=== PATIENT | female | born 1980 | race Caucasian/White ===

== ENCOUNTER 2017-07-12 05:45 | Observation (INO) | payer SELFPAY ==
[~2017-07-12] VITALS: Ht 167.6 cm; Wt 97.7 kg
[~2017-07-12 05:45] MED LIST: CIPR500T4 PO; IBUP-232 PO; IBUP-238 PO; PHEN-426 PO; TRAM50TA PO
[2017-07-12 05:46] VITALS: BP 181/121; PULSE 100; RESP 20; TEMP 98.7; O2SAT 100
[2017-07-12] MEDS ORDERED: CLON1 PO (06:00)
[2017-07-12] MEDS ORDERED: ZOLO100T PO (06:00)
[2017-07-12] MEDS ORDERED: CLON.5 PO (06:00)
[2017-07-12] MEDS ORDERED: SODIUM CHLORIDE 0.9% FLUSH 10 ML FLUSH IVF PRN (06:15)
[2017-07-12] MEDS ORDERED: ASPIRIN 81 MG CHEW TAB PO ONE (06:15)
[2017-07-12] MEDS ORDERED: PROCHLORPERAZINE INJ 10 MG/2 ML VIAL IV PUSH ONE (06:15)
[2017-07-12] MEDS ORDERED: LORazepam 2 MG/ML VIAL IV PUSH ONE (06:15)
[2017-07-12 06:20] LABS: AUTOMATED NEUTROPHIL # 9.2 TH/MM3 (1.8-7.7); BASOPHIL # 0.1 TH/MM3 (0-0.2); BASOPHIL % 0.7 % (0.0-2.0); EOSINOPHIL # 0.4 TH/MM3 (0-0.4); EOSINOPHIL % 2.6 % (0.0-4.0); HEMATOCRIT 38.9 % (35.0-46.0); HEMO FLAGS DIFF FINAL; LYMPH % 25.7 % (9.0-44.0); LYMPHOCYTE # 3.6 TH/MM3 (1.0-4.8); MEAN CELL VOLUME 82.3 FL (80.0-100.0); MEAN CORPUSCULAR HEMOGLOBIN 27.7 PG (27.0-34.0); MEAN CORPUSCULAR HGB CONC 33.7 % (32.0-36.0); MONO % 6.1 % (0.0-8.0); NEUT % 64.9 % (16.0-70.0); PLATELET COUNT 281 TH/MM3 (150-450); RED BLOOD COUNT 4.73 MIL/MM3 (4.00-5.30); RED CELL DISTRIBUTION WIDTH 14.1 % (11.6-17.2); WHITE BLOOD COUNT 14.2 TH/MM3 (4.0-11.0)
[2017-07-12 06:34] LABS: APTT (PATIENT) 27.8 SEC (24.3-30.1); INTERNATIONAL NORMALIZED RATIO 0.9 RATIO; PROTHROMBIN TIME - PATIENT 9.9 SEC (9.8-11.6)
--- NOTE | 2017-07-12 06:35 | PD ---
HPI Chief Complaint: Chest Pain Time Seen by Provider: 05:53 Travel History International Travel<30 days: No Contact w/Intl Traveler<30days: No Traveled to known affect area: No History of Present Illness HPI This is a 36-year-old female with a history of cervical dysplasia, anxiety disorder, presents today with complaints of chest pain and back pain. Patient states that she woke up this morning with a bandlike tightening sensation around her back and chest. She reports associated shortness of breath. She reports she has nausea. There is no vomiting or diaphoresis. Patient not had previous pain like this before. The patient smokes 2 packs of cigarettes a day. She denies any long car rides or calf swelling. She denies any history of previous DVTs or clotting disorders. There is no reported control pill use. PFSH Past Medical History Anxiety: Yes Diminished Hearing: No Immunizations Current: Yes Tetanus Vaccination: Unknown Influenza Vaccination: No ?: Not LMP: 6 years ago : 5 Para: 5 Miscarriage: 0 : 0 Tubal Ligation: Yes Past Surgical History Appendectomy: Yes Gynecologic Surgery: Yes (HYST) Hysterectomy: Yes Social History Alcohol Use: No Tobacco Use: Yes (1 PPD) Substance Use: Yes (mj) Allergies-Medications (Allergen,Severity, Reaction): Coded Allergies: red dye (Unverified Allergy, Mild, 04/12/17) latex (Unverified Allergy, Unknown, Itching, 04/12/17) Reported Meds & Prescriptions Reported Meds & Active Scripts Active Ibuprofen 600 Mg Tab 600 Mg PO Q6H PRN Reported Klonopin (Clonazepam) 1 Mg Tab 1 Mg PO HS Klonopin (Clonazepam) 0.5 Mg Tab 0.5 Mg PO DAILY Zoloft (Sertraline HCl) 100 Mg Tab 150 Mg PO DAILY Review of Systems Except as stated in HPI: all other systems reviewed are Neg General / Constitutional: No: Fever, Chills HENT: No: Headaches, Lightheadedness, Neck Pain Cardiovascular: Positive: Chest Pain or Discomfort, No: Palpitations, Irregular Rhythm Respiratory: Positive: Shortness of Breath, No: Cough Gastrointestinal: Positive: Nausea, No: Vomiting, Abdominal Pain Musculoskeletal: Positive: Pain, No: Weakness, Edema Neurologic: No: Weakness, Dizziness, Headache Psychiatric: No: Anxiety, Depression, Disorder of Thought Physical Exam Narrative GENERAL: Well-developed well-nourished female who appears anxious and crying. She is in no acute respiratory distress. SKIN: Focused skin assessment warm/dry. HEAD: Atraumatic. Normocephalic. EYES: Pupils equal and round. No scleral icterus. No injection or drainage. ENT: No nasal bleeding or discharge. Mucous membranes pink and moist. NECK: Trachea midline. Supple. CARDIOVASCULAR: Regular rate and rhythm. No murmur appreciated. RESPIRATORY: No accessory muscle use. Clear to auscultation. Breath sounds equal bilaterally. GASTROINTESTINAL: Abdomen soft, non-tender, nondistended. MUSCULOSKELETAL: No obvious deformities. No clubbing. No cyanosis. No edema. NEUROLOGICAL: Awake and alert. No obvious cranial nerve deficits. Motor grossly within normal limits. Normal speech. PSYCHIATRIC: Anxious and tearful. Data Data Last Documented VS Vital Signs Date Time Temp Pulse Resp B/P (MAP) Pulse Ox O2 Delivery O2 Flow Rate FiO2 07/12/17 06:01 100 Room Air 07/12/17 05:46 98.7 100 20 181/121 (141) Orders Orders Basic Metabolic Panel (Bmp) (07/12/17 06:05) Ckmb (Isoenzyme) Profile (07/12/17 06:05) Complete Blood Count With Diff (07/12/17 06:05) Magnesium (Mg) (07/12/17 06:05) Prothrombin Time / Inr (Pt) (07/12/17 06:05) Act Partial Throm Time (Ptt) (07/12/17 06:05) Troponin I (07/12/17 06:05) Chest, Single Ap (07/12/17 06:05) Ecg Monitoring (07/12/17 06:05) Bilateral Bp Monitoring (07/12/17 06:05) Iv Access Insert/Monitor (07/12/17 06:05) Oximetry (07/12/17 06:05) Oxygen Administration (07/12/17 06:05) Aspirin Chew (Aspirin Chew) (07/12/17 06:15) Sodium Chloride 0.9% Flush (Ns Flush) (07/12/17 06:15) Lorazepam Inj (Ativan Inj) (07/12/17 06:15) Prochlorperazine Inj (Compazine Inj) (07/12/17 06:15) D-Dimer (07/12/17 06:09) Admit Order (Ed Use Only) (07/12/17 07:00) Activity Bed Rest With Brp (07/12/17 07:00) Vital Signs (Adult) Q4H (07/12/17 07:00) Cardiac Rhythm .As Directed (07/12/17 07:00) Notify Dr: Other .PRN (07/12/17 07:00) Notify Dr. Parameters (07/12/17 07:00) Resp Oxygen Nasal Cannula (07/12/17 ) Diet Npo (07/12/17 Breakfast) Ckmb (Isoenzyme) Profile (07/12/17 09:00) Ckmb (Isoenzyme) Profile (07/12/17 12:00) Troponin I (07/12/17 09:00) Troponin I (07/12/17 12:00) Electrocardiogram (07/12/17 09:00) Electrocardiogram (07/12/17 12:00) ^ Obtain (07/12/17 07:00) Sodium Chloride 0.9% Flush (Ns Flush) (07/12/17 07:00) Sodium Chloride 0.9% Flush (Ns Flush) (07/12/17 09:00) [employer] / Telemetry [id number] (07/12/17 07:00) Labs Laboratory Tests Test 07/12/17 06:09 White Blood Count 14.2 TH/MM3 Red Blood Count 4.73 MIL/MM3 Hemoglobin 13.1 GM/DL Hematocrit 38.9 % Mean Corpuscular Volume 82.3 FL Mean Corpuscular Hemoglobin 27.7 PG Mean Corpuscular Hemoglobin Concent 33.7 % Red Cell Distribution Width 14.1 % Platelet Count 281 TH/MM3 Mean Platelet Volume 7.9 FL Neutrophils (%) (Auto) 64.9 % Lymphocytes (%) (Auto) 25.7 % Monocytes (%) (Auto) 6.1 % Eosinophils (%) (Auto) 2.6 % Basophils (%) (Auto) 0.7 % Neutrophils # (Auto) 9.2 TH/MM3 Lymphocytes # (Auto) 3.6 TH/MM3 Monocytes # (Auto) 0.9 TH/MM3 Eosinophils # (Auto) 0.4 TH/MM3 Basophils # (Auto) 0.1 TH/MM3 CBC Comment DIFF FINAL Differential Comment Prothrombin Time 9.9 SEC Prothromb Time International Ratio 0.9 RATIO Activated Partial Thromboplast Time 27.8 SEC D-Dimer Quantitative (PE/DVT) 0.29 MG/L FEU Blood Urea Nitrogen 11 MG/DL Creatinine 0.93 MG/DL Random Glucose 125 MG/DL Calcium Level 9.0 MG/DL Magnesium Level 1.9 MG/DL Sodium Level 137 MEQ/L Potassium Level 3.9 MEQ/L Chloride Level 104 MEQ/L Carbon Dioxide Level 23.2 MEQ/L Anion Gap 10 MEQ/L Estimat Glomerular Filtration Rate 68 ML/MIN Total Creatine Kinase 56 U/L Troponin I LESS THAN 0.02 NG/ML MDM Medical Decision Making Medical Screen Exam Complete: Yes Emergency Medical Condition: Yes Differential Diagnosis ACS versus musculoskeletal pain versus pulmonary embolus Narrative Course 36-year-old female presents with chest pain and shortness of breath and nausea. The patient has no cardiac risk factors other than 2 packs of cigarettes per day. The patient has a history of dysplastic cells in her uterus and cervix. She's had a complete hysterectomy. D-dimer is negative. EKG shows no evidence of acute ST elevations or depressions. Cardiac enzymes are within normal limits. Given her tobacco history, she'll be placed in the chest pain center. Disposition will be per chest pain center after stress test. Diagnosis Primary Impression: Chest pain Additional Impression: Tobacco abuse Admitting Information Admitting Physician Requests: Yogi Wen MD Jul 12, 2017 06:35
[2017-07-12 06:41] LABS: ANION GAP 10 MEQ/L (5-15); BICARBONATE 23.2 MEQ/L (21.0-32.0); BLOOD UREA NITROGEN 11 MG/DL (7-18); CHLORIDE 104 MEQ/L (98-107); GLOMERULAR FILTRATION RATE 68 ML/MIN (>89); MAGNESIUM 1.9 MG/DL (1.5-2.5); POTASSIUM 3.9 MEQ/L (3.5-5.1); SODIUM (NA) 137 MEQ/L (136-145)
--- NOTE | 2017-07-12 06:48 | RADRPT ---
EXAM DATE/TIME: 07/12/2017 06:26 [facility] COMPARISON: CHEST SINGLE AP, July 14, 2016, 18:22. INDICATIONS : Chest pain, shortness of breath. MEDICAL HISTORY : None. SURGICAL HISTORY : Hysterectomy. ENCOUNTER: Initial ACUITY: 1 day PAIN SCORE: 0/10 LOCATION: Bilateral chest FINDINGS: A single view of the chest demonstrates the lungs to be symmetrically aerated without evidence of mas s, infiltrate or effusion. The cardiomediastinal contours are unremarkable. Osseous structures are intact. CONCLUSION: Normal examination. Irving Neal MD on July 12, 2017 at 6:47 Board Certified Radiologist. This report was verified electronically.
[2017-07-12 06:55] LABS: CREATINE KINASE 56 U/L (26-192)
[2017-07-12 07:00] VITALS: BP_SYST 124; BP_SYST 131; BP_DIAS 77; BP_DIAS 81; PULSE 94; PULSE 96; RESP 16; TEMP 97.8; O2SAT 98
[2017-07-12] MEDS ORDERED: SODIUM CHLORIDE 0.9% FLUSH 10 ML FLUSH IV FLUSH PRN (07:00)
--- NOTE | 2017-07-12 08:48 | HHI.HP ---
[facility] Primary Care Physician Ruslan Alvarez M.D. Chief Complaint Chest pain History of Present Illness This is a 36-year-old female that presents to ED via private vehicle with a complaint of a chest discomfort. Patient states she initially woke up about 2 in the morning with the back discomfort. Denies hot shower trying to make it go away but it still kind of persisted. She went back to bed. Reawoke at 3:30 morning with a chest pressure and center chest. She states it felt deep. It lasted 1-1/2 hours. She was short of breath with it, nauseous, and mildly diaphoretic. She found that she took in a deep breath it would worsen. She's never had a discomfort like this before. Worse level is a 9 out of 10. Cannot recall prior stress testing. Denies recent illness. Denies any recent travel. Denies oral contraceptive use. Review of Systems General: Patient denies fevers, chills recent, and recent travel HEENT: Patient denies headache, sore throat, difficulty swallowing. Cardiovascular: Has the chest discomfort as mentioned above. Denies sensation of heart beating rapidly or irregularly. No syncope. Mildly diaphoretic. Respiratory: She was short of breath. Inspiration seems to worsen the discomfort. Denies coughing wheezing or hemoptysis. GI: She was nauseated. Patient denies vomiting, diarrhea, abdominal pain, bloody stools. Musculoskeletal: Patient denies joint pain or edema. Denies calf pain or edema. Neurovascular: Patient denies numbness, tingling, weakness in extremities. Denies headache. Endocrine: Denies polyuria and polydipsia. Hematologic: Denies easy bruising. Skin: Denies rash or itching. Past Family Social History Allergies: Coded Allergies: red dye (Unverified Allergy, Mild, 04/12/17) latex (Unverified Allergy, Unknown, Itching, 04/12/17) Past Medical History Anxiety. Depression. Denies hyperlipidemia, diabetes, CAD, and hypertension. Past Surgical History Hysterectomy and appendectomy. Reported Medications Reported Meds & Active Scripts Active Ibuprofen 600 Mg Tab 600 Mg PO Q6H PRN Reported Klonopin (Clonazepam) 1 Mg Tab 1 Mg PO HS Klonopin (Clonazepam) 0.5 Mg Tab 0.5 Mg PO DAILY Zoloft (Sertraline HCl) 100 Mg Tab 150 Mg PO DAILY Active Ordered Medications Current Medications Medications (Trade) Dose Ordered Sig/Renata Route Start Time Stop Time Status Last Admin (NS Flush) 2 ml UNSCH PRN IVF 07/12/17 06:15 (NS Flush) 2 ml UNSCH PRN IV FLUSH 07/12/17 07:00 (NS Flush) 2 ml BID IV FLUSH 07/12/17 09:00 Family History Her mother is some type of heart disease but really not sure what it is. She is followed by short order fry cook. Social History Patient smokes on average 2 packs of cigarettes a day for 27 years. Has occasional marijuana. Denies alcohol. Physical Exam Vital Signs Vital Signs Date Time Temp Pulse Resp B/P (MAP) Pulse Ox O2 Delivery O2 Flow Rate FiO2 07/12/17 07:00 96 16 98 Room Air 07/12/17 07:00 98 Room Air 07/12/17 07:00 97.8 96 16 131/77 (95) 98 Room Air 07/12/17 07:00 97.8 94 16 131/77 (95) 98 Room Air 124/81 (95) 07/12/17 07:00 16 98 Room Air 07/12/17 06:01 100 Room Air 07/12/17 05:46 98.7 100 20 181/121 (141) 100 Room Air Physical Exam GENERAL: This is a well-nourished, well-developed patient, in no apparent distress. Patient speaks in clear complete sentences. Patient is pleasant. HEENT: Head is atraumatic and normocephalic. Neck is supple without lymphadenopathy and trachea is midline. No JVD or carotid bruits. CARDIOVASCULAR: Regular rate and rhythm without murmurs, gallops, or rubs. RESPIRATORY: Clear to auscultation. Breath sounds equal bilaterally. No wheezes , rales, or rhonchi. Chest wall is tender however it is not the same discomfort she had this morning. No use of accessory muscles. GASTROINTESTINAL: Abdomen is nontender, nondistended. Abdomen soft. No obvious pulsatile mass or bruit. No CVA tenderness. Strong femoral pulses bilaterally. Normal bowel sounds in all quadrants. MUSCULOSKELETAL: Patient is moving upper and lower extremities freely. No calf tenderness or edema, no Homans sign. Strong pulses in upper and lower extremities. NEUROLOGICAL: Patient is alert and oriented. Cranial nerves 2-12 are grossly intact. No focal deficits and speech is clear. SKIN: No rash and turgor is normal. Laboratory Laboratory Tests Test 07/12/17 06:09 White Blood Count 14.2 Red Blood Count 4.73 Hemoglobin 13.1 Hematocrit 38.9 Mean Corpuscular Volume 82.3 Mean Corpuscular Hemoglobin 27.7 Mean Corpuscular Hemoglobin Concent 33.7 Red Cell Distribution Width 14.1 Platelet Count 281 Mean Platelet Volume 7.9 Neutrophils (%) (Auto) 64.9 Lymphocytes (%) (Auto) 25.7 Monocytes (%) (Auto) 6.1 Eosinophils (%) (Auto) 2.6 Basophils (%) (Auto) 0.7 Neutrophils # (Auto) 9.2 Lymphocytes # (Auto) 3.6 Monocytes # (Auto) 0.9 Eosinophils # (Auto) 0.4 Basophils # (Auto) 0.1 CBC Comment DIFF FINAL Differential Comment Prothrombin Time 9.9 Prothromb Time International Ratio 0.9 Activated Partial Thromboplast Time 27.8 D-Dimer Quantitative (PE/DVT) 0.29 Blood Urea Nitrogen 11 Creatinine 0.93 Random Glucose 125 Calcium Level 9.0 Magnesium Level 1.9 Sodium Level 137 Potassium Level 3.9 Chloride Level 104 Carbon Dioxide Level 23.2 Anion Gap 10 Estimat Glomerular Filtration Rate 68 Total Creatine Kinase 56 Troponin I LESS THAN 0.02 Result Diagram: 07/12/17 0609 07/12/17 06 Imaging Last 48 hours Impressions Chest X-Ray 07/12/17 0605 Signed Impressions: Service Date/Time: Wednesday, July 12, 2017 06:26 - CONCLUSION: Normal examination. Irving Neal MD Course Initial EKG sinus rhythm without significant ST segment depressions or elevations. Caprini VTE Risk Assessment Caprini VTE Risk Assessment: No/Low Risk (score <= 1) Caprini Risk Assessment Model Point Value = 1 Point Value = 2 Point Value = 3 Point Value = 5 Age 41-60 Minor surgery BMI > 25 kg/m2 Swollen legs Varicose veins or History of unexplained or recurrent spontaneous Oral contraceptives or hormone replacement Sepsis (< 1 month) Serious lung disease, including pneumonia (< 1 month) Abnormal pulmonary function Acute myocardial infarction Congestive heart failure (< 1 month) History of inflammatory bowel disease Medical patient at bed rest Age 61-74 Arthroscopic surgery Major open surgery (> 45 min) Laparoscopic surgery (> 45 min) Malignancy Confined to bed (> 72 hours) Immobilizing plaster cast Central venous access Age >= 75 History of VTE Family history of VTE Factor V Leiden Prothrombin [id number] Lupus anticoagulant Anticardiolipin antibodies Elevated serum homocysteine Heparin-induced thrombocytopenia Other congenital or acquired thrombophilia Stroke (< 1 month) Elective arthroplasty Hip, pelvis, or leg fracture Acute spinal cord injury (< 1 month) Prophylaxis Regimen Total Risk Factor Score Risk Level Prophylaxis Regimen 0-1 Low Early ambulation 2 Moderate Order ONE of the following: *Sequential Compression Device (SCD) *Heparin 5000 units SQ BID 3-4 Higher Order ONE of the following medications: *Heparin 5000 units SQ TID *Enoxaparin/Lovenox 40 mg SQ daily (WT < 150 kg, CrCl > 30 mL/min) *Enoxaparin/Lovenox 30 mg SQ daily (WT < 150 kg, CrCl > 10-29 mL/min) *Enoxaparin/Lovenox 30 mg SQ BID (WT < 150 kg, CrCl > 30 mL/min) AND/OR *Sequential Compression Device (SCD) 5 or more Highest Order ONE of the following medications: *Heparin 5000 units SQ TID (Preferred with Epidurals) *Enoxaparin/Lovenox 40 mg SQ daily (WT < 150 kg, CrCl > 30 mL/min) *Enoxaparin/Lovenox 30 mg SQ daily (WT < 150 kg, CrCl > 10-29 mL/min) *Enoxaparin/Lovenox 30 mg SQ BID (WT < 150 kg, CrCl > 30 mL/min) AND *Sequential Compression Device (SCD) Assessment and Plan Assessment and Plan * Chest pain: Patient will continue to have serial cardiac enzymes and EKGs for ruling out purposes. She has been seen by Dr. Schmid cardiology in the chest and lucas. Patient will undergo a Jeffery protocol ETT if she does rule out. She'll be discharged home if her stress test is nonischemic with instructions to follow-up with PCP. Return to ED for interval issues. * Depression/anxiety: Continue medications. * Tobacco abuse: Patient has been counseled on importance of smoking cessation. Patient is stable at this time. She is agreeable to this plan. Baljeet Traylor Jul 12, 2017 08:48
[2017-07-12 09:00] VITALS: BP 118/83; PULSE 70; RESP 16; TEMP 97.8; O2SAT 99
[2017-07-12] MEDS ORDERED: SERTRALINE HCL 100 MG TAB PO SCH (09:00)
[2017-07-12] MEDS ORDERED: clonazePAM 0.5 MG TAB PO SCH (09:00)
[2017-07-12] MEDS ORDERED: SODIUM CHLORIDE 0.9% FLUSH 10 ML FLUSH IV FLUSH SCH (09:00)
[2017-07-12 10:23] LABS: CREATINE KINASE 52 U/L (26-192)
[2017-07-12 11:00] VITALS: BP 123/85; PULSE 80; RESP 16; TEMP 97.8; O2SAT 99
[2017-07-12 12:26] LABS: CREATINE KINASE 49 U/L (26-192)
[2017-07-12 13:20] VITALS: BP 122/83; TEMP 97
[2017-07-12] MEDS ORDERED: RESP: ALBUTEROL 2.5 MG/IPRATROPIUM 0.5 MG NEB (PRN) INH (13:30)
[2017-07-12] MEDS ORDERED: RESP: ALBUTEROL 2.5 MG/IPRATROPIUM 0.5 MG NEB (SCH) INH ONE (13:30)
--- NOTE | 2017-07-12 14:42 | HHI.DCPOC ---
Discharge Care Plan Diagnosis: (1) Chest pain (2) Tobacco abuse Goals to Promote Your Health * To prevent worsening of your condition and complications * To maintain your health at the optimal level Directions to Meet Your Goals Take your medications as prescribed Follow your dietary instruction Follow activity as directed Keep your appointments as scheduled Take your immunizations and boosters as scheduled If your symptoms worsen call your PCP, if no PCP go to Urgent Care Center or Emergency Room Smoking is Dangerous to Your Health. Avoid second hand smoke Call the 24-hour hour crisis hotline for domestic abuse at Baljeet Traylor Jul 12, 2017 14:42
--- NOTE | 2017-07-12 17:19 | TR ---
Date Performed: 07/12/2017 Time Performed: 14:19:39 DOCTOR: Michelle Schmid DRUG LIST: CLINICAL HISTORY: REASON FOR TEST: REASON FOR ENDING: OBSERVATION: CONCLUSION: CONSTANT CHEST DISCOMFORT DID NOT WORSEN. TEST STOPPED AFTER EXCEEDING GOAL HR SECON STORMY TO SOB AND LEG FATIGUE.Maximum YS=640 % Max HR Achieved=86.0% Maximum BE=301/82 Total Exercise T zahra=4:01 COMMENTS:
--- NOTE | 2017-07-12 17:19 | EKG ---
Date Performed: 07/12/2017 Time Performed: 11:15:43 PTAGE: 36 years EKG: Sinus rhythm WITH SINUS ARRHYTHMIA NONSPECIFIC T-WAVE ABNORMALITY BORDERLINE ECG Since PREVIOUS TRACING , no significant change noted PREVIOUS TRACIN07/12/2017 09.12 DOCTOR: Michelle Schmid Interpretating Date/Time 07/12/2017 17:17:29
--- NOTE | 2017-07-12 17:20 | EKG ---
Date Performed: 07/12/2017 Time Performed: 09:12:04 PTAGE: 36 years EKG: Sinus rhythm NORMAL ECG Since PREVIOUS TRACING , no significant change noted PREVIOUS TRACIN07/12/2017 05.59 DOCTOR: Michelle Schmid Interpretating Date/Time 07/12/2017 17:18:53
--- NOTE | 2017-07-12 17:21 | EKG ---
Date Performed: 07/12/2017 Time Performed: 05:59:00 PTAGE: 36 years EKG: Sinus rhythm WITH SINUS ARRHYTHMIA NORMAL ECG Since PREVIOUS TRACING , no significant change noted DOCTOR: Michelle Schmid Interpretating Date/Time 07/12/2017 17:19:09
[2017-07-12] MEDS ORDERED: clonazePAM 1 MG TAB PO SCH (21:00)
== END 2017-07-12 15:41 | disposition home or self-care (01) ==
LOC: NEPE 05:45 → NEDA 07:03 → NEPGCP 13:28
DX: R07.9 Chest pain, unspecified (principal); F17.210 Nicotine dependence, cigarettes, uncomplicated; R06.02 Shortness of breath; F41.9 Anxiety disorder, unspecified; R11.0 Nausea; R61 Generalized hyperhidrosis; F32.9 Major depressive disorder, single episode, unspecified; F12.90 Cannabis use, unspecified, uncomplicated
CPT/HCPCS: 71010; 80048; 82550; 83735; 84484; 85025; 85379; 85610; 85730; 93005; 93017; 94664; 96374; 96375; 99285; G0378; J0780; J2060

== ENCOUNTER 2017-07-27 11:19 | Emergency (ER) | payer SELFPAY ==
[~2017-07-27] VITALS: Ht 167.6 cm; Wt 114.0 kg
[~2017-07-27 11:19] MED LIST changes: -CIPR500T4 PO; +CLON.5 PO; +CLON1 PO; -IBUP-232 PO; -IBUP-238 PO; -PHEN-426 PO; -TRAM50TA PO; +ZOLO100T PO
[2017-07-27 11:21] VITALS: BP 143/56; PULSE 97; RESP 16; TEMP 98.1; O2SAT 97
[2017-07-27] MEDS ORDERED: TRAZ100T10 PO (11:44)
[2017-07-27] MEDS ORDERED: ADDE20 PO (11:44)
[2017-07-27] MEDS ORDERED: IBUP1TAB7 PO (11:44)
[2017-07-27] MEDS ORDERED: BACL10TA PO (11:44)
--- NOTE | 2017-07-27 12:35 | RADRPT ---
EXAM DATE/TIME: 07/27/2017 12:14 [facility] COMPARISON: No previous studies available for comparison. INDICATIONS : Right 2nd digit pain, no known injury. MEDICAL HISTORY : None. SURGICAL HISTORY : None. ENCOUNTER: Initial ACUITY: 2 days PAIN SCORE: 4/10 LOCATION: Right distal 2nd digit FINDINGS: There is mild generalized soft tissue swelling of the second digit. Bony structures are intact. There is no evidence of fracture, significant arthropathy or radiopaque f oreign body. CONCLUSION: Soft tissue swelling of the second digit without evidence of acute bony abnormality, destructive bone changes or radiopaque foreign body. Pritesh Carr MD on July 27, 2017 at 12:32 Board Certified Radiologist. This report was verified electronically.
--- NOTE | 2017-07-27 12:56 | PD ---
HPI Chief Complaint: Musculoskeletal Complaint Time Seen by Provider: 11:44 Travel History International Travel<30 days: No Contact w/Intl Traveler<30days: No Traveled to known affect area: No History of Present Illness HPI 36-year-old female with right second digit pain and swelling. Patient reports she started taking trazodone at night recently and is unsure how she injured the finger. She has no other injuries. She has tenderness and swelling to the DIP joint of the right second digit. She reports normal sensation of foreign range of motion. PFSH Past Medical History Anxiety: Yes Heart Rhythm Problems: No Cardiac Catheterization: No Cardiovascular Problems: No High Cholesterol: No Congestive Heart Failure: No Diabetes: No Diminished Hearing: No Immunizations Current: Yes Influenza Vaccination: No ?: Not : 5 Para: 5 Miscarriage: 0 : 0 Tubal Ligation: Yes Past Surgical History Appendectomy: Yes Coronary Artery Bypass Graft: No Gynecologic Surgery: Yes (HYST) Hysterectomy: Yes Family History Family Myocardial Infarction: Yes (DAD AND MATERNAL GRANDFATHER) Social History Alcohol Use: No Tobacco Use: Yes (1 PPD) Substance Use: Yes (mj) Allergies-Medications (Allergen,Severity, Reaction): Coded Allergies: red dye (Unverified Allergy, Mild, 07/27/17) latex (Unverified Allergy, Unknown, Itching, 07/27/17) Reported Meds & Prescriptions Reported Meds & Active Scripts Active Reported Adderall (Amphetamine-Dextroamphetamine) 20 Mg Tab 20 Mg PO BID Avoid late evening doses. Space doses at least 4 to 6 hours if more than once/day dosing. Ibuprofen 800 Mg Tab 800 Mg PO TID Baclofen 10 Mg Tab 10 Mg PO TID Trazodone (Trazodone HCl) 100 Mg Tablet 100 Mg PO HS Klonopin (Clonazepam) 1 Mg Tab 1 Mg PO HS Klonopin (Clonazepam) 0.5 Mg Tab 0.5 Mg PO DAILY Zoloft (Sertraline HCl) 100 Mg Tab 150 Mg PO DAILY Review of Systems Except as stated in HPI: all other systems reviewed are Neg Physical Exam Narrative GENERAL: Well-nourished, well-developed patient. SKIN: Focused skin assessment warm/dry. HEAD: Normocephalic. EYES: No scleral icterus. No injection or drainage. NECK: Supple, trachea midline. No JVD or lymphadenopathy. MUSCULOSKELETAL: No cyanosis, or edema. Right hand: Tenderness and mild swelling to the right second digit. Point tenderness over the DIP joint. No deformity. Normal sensation. Brisk cap refill. Data Data Last Documented VS Vital Signs Date Time Temp Pulse Resp B/P (MAP) Pulse Ox O2 Delivery O2 Flow Rate FiO2 07/27/17 11:21 98.1 97 16 143/56 (85) 97 Orders Orders Finger ([id number]) (07/27/17 ) Splint Or Brace Apply/Monitor (07/27/17 12:54) Ed Discharge Order (07/27/17 12:56) MDM Medical Decision Making Medical Screen Exam Complete: Yes Emergency Medical Condition: Yes Differential Diagnosis Finger fracture versus sprain versus strain versus contusion Narrative Course 36-year-old female with right second digit pain and swelling. Patient reports she started taking trazodone at night recently and is unsure how she injured the finger. She has no other injuries. She has tenderness and swelling to the DIP joint of the right second digit. Extremities neurovascular intact. Normal sensation. X-rays negative for fracture. The finger will be splinted she was instructed to take NSAIDs and follow up with her doctor. Diagnosis Primary Impression: Finger pain Qualified Codes: M79.644 - Pain in right finger(s) Referrals: Primary Care Physician Disposition: 01 DISCHARGE HOME Condition: Stable Ade Valle Jul 27, 2017 12:56
== END 2017-07-27 13:27 | disposition home or self-care (01) ==
LOC: PHEFT 11:19
DX: M79.644 Pain in right finger(s) (principal)
CPT/HCPCS: 73140; 99283

== ENCOUNTER 2017-09-06 23:04 | Observation (INO) | payer BC, OTHER ==
[~2017-09-06] VITALS: Ht 167.6 cm; Wt 113.5 kg
[~2017-09-06 23:04] MED LIST changes: +ADDE20 PO; +BACL10TA PO; +IBUP1TAB7 PO; +TRAZ100T10 PO
[2017-09-06 23:09] VITALS: BP 154/87; PULSE 107; RESP 18; TEMP 98.9; O2SAT 97
[2017-09-06] MEDS ORDERED: FAMOTIDINE 20 MG/2 ML VIAL IV PUSH ONE (23:30)
[2017-09-06] MEDS ORDERED: diphenhydrAMINE HCL 50 MG/ML VIAL IVP ONE (23:30)
[2017-09-06] MEDS ORDERED: methylPREDNISolone SOD SUCC 125 MG/2 ML VIAL IV PUSH ONE (23:30)
[2017-09-06] MEDS ORDERED: EPINEPHrine HCL (1:1000) 1 MG/ML VIAL IM ONE (23:30)
--- NOTE | 2017-09-06 23:31 | PD ---
HPI Chief Complaint: Allergic/Adverse Reaction Time Seen by Provider: 23:23 Travel History International Travel<30 days: No Contact w/Intl Traveler<30days: No Traveled to known affect area: No History of Present Illness HPI 36yo F with PMH of anxiety presents to the ED with c/o lip swelling, itching and redness in bilateral arms and ankles. Said she started having right lower lip swelling maybe 3 hours ago but then left side became swollen as well and she started itching about an hour ago. Said she feels she is having some difficulty swallowing. Had similar lip swelling with red dye before but didnt have it and it was not this severe. Pt has some nausea, but has been nauseous all day. Mild sob. Denies any chest pain, vomiting, abdominal pain, focal weakness or numbness. Pt is being work up by quahogger now for hematuria and urinary incontinence and started on oxybutynin yesterday. Last took it today. Denies any family history of angioedema or ANDRES inhibitors. PFSH Past Medical History Anxiety: Yes Heart Rhythm Problems: No Cardiac Catheterization: No Cardiovascular Problems: No High Cholesterol: No Congestive Heart Failure: No Diabetes: No Diminished Hearing: No Immunizations Current: Yes : 5 Para: 5 Miscarriage: 0 : 0 Tubal Ligation: Yes Past Surgical History Appendectomy: Yes Coronary Artery Bypass Graft: No Gynecologic Surgery: Yes (HYST) Hysterectomy: Yes Social History Alcohol Use: No Tobacco Use: Yes (1 PPD) Substance Use: Yes (mj) Allergies-Medications (Allergen,Severity, Reaction): Coded Allergies: red dye (Unverified Allergy, Mild, 07/27/17) latex (Unverified Allergy, Unknown, Itching, 07/27/17) Reported Meds & Prescriptions Reported Meds & Active Scripts Active Prednisone 10 Mg Tab 10 Mg PO DAILY Take 20mg twice daily x 1 day, decrease down to 20mg once daily x 2 days, then decrease to 10 mg once daily x 2 days, then stop. Epipen 2-Darvin Inj (Epinephrine) 0.3 Mg/0.3 Ml Pfpen 0.3 Mg IM ONCE PRN Reported Soma (Carisoprodol) 350 Mg Tab 350 Mg PO HS PRN Adderall (Amphetamine-Dextroamphetamine) 20 Mg Tab 20 Mg PO BID Avoid late evening doses. Space doses at least 4 to 6 hours if more than once/day dosing. Ibuprofen 800 Mg Tab 800 Mg PO TID Trazodone (Trazodone HCl) 100 Mg Tablet 100 Mg PO HS Klonopin (Clonazepam) 1 Mg Tab 1 Mg PO HS Klonopin (Clonazepam) 0.5 Mg Tab 0.5 Mg PO DAILY Zoloft (Sertraline HCl) 100 Mg Tab 150 Mg PO DAILY Review of Systems Except as stated in HPI: all other systems reviewed are Neg Physical Exam Narrative GENERAL: 36yo F in moderate distress. SKIN: Focused skin assessment warm/dry. HEAD: Atraumatic. Normocephalic. EYES: Pupils equal and round. No scleral icterus. No injection or drainage. ENT: +Marked lower lip swelling. Uvula midline. Patent airway. NECK: Trachea midline. No JVD. CARDIOVASCULAR: Regular rate and rhythm. No murmur appreciated. RESPIRATORY: No accessory muscle use. Clear to auscultation. Breath sounds equal bilaterally. GASTROINTESTINAL: Abdomen soft, non-tender, nondistended. Hepatic and splenic margins not palpable. MUSCULOSKELETAL: No obvious deformities. No clubbing. No cyanosis. No edema. NEUROLOGICAL: Awake and alert. No obvious cranial nerve deficits. Motor grossly within normal limits. Normal speech. PSYCHIATRIC: Appropriate mood and affect; insight and judgment normal. Data Data Last Documented VS Vital Signs Date Time Temp Pulse Resp B/P (MAP) Pulse Ox O2 Delivery O2 Flow Rate FiO2 09/06/17 23:38 80 130/66 09/06/17 23:09 98.9 18 97 Orders Orders Diphenhydramine Inj (Benadryl Inj) (09/06/17 23:30) Methylprednisolone So Succ Inj (Solumedr (09/06/17 23:30) Famotidine Inj (Pepcid Inj) (09/06/17 23:30) Epinephrine (1:1000) Inj (Adrenalin (1:1 (09/06/17 23:30) Complete Blood Count With Diff (09/06/17 23:24) Basic Metabolic Panel (Bmp) (09/06/17 23:24) Admit Order (Ed Use Only) (09/07/17 00:38) Place In Observation (09/07/17 ) Vital Signs (Adult) JAVON.Q4H (09/07/17 00:39) Activity Oob Ad Izzy (09/07/17 00:39) Labs Laboratory Tests Test 09/06/17 23:50 White Blood Count 9.6 TH/MM3 Red Blood Count 4.23 MIL/MM3 Hemoglobin 12.3 GM/DL Hematocrit 34.9 % Mean Corpuscular Volume 82.5 FL Mean Corpuscular Hemoglobin 29.1 PG Mean Corpuscular Hemoglobin Concent 35.3 % Red Cell Distribution Width 14.7 % Platelet Count 258 TH/MM3 Mean Platelet Volume 7.9 FL Neutrophils (%) (Auto) 53.0 % Lymphocytes (%) (Auto) 32.8 % Monocytes (%) (Auto) 8.1 % Eosinophils (%) (Auto) 5.4 % Basophils (%) (Auto) 0.7 % Neutrophils # (Auto) 5.1 TH/MM3 Lymphocytes # (Auto) 3.1 TH/MM3 Monocytes # (Auto) 0.8 TH/MM3 Eosinophils # (Auto) 0.5 TH/MM3 Basophils # (Auto) 0.1 TH/MM3 CBC Comment DIFF FINAL Differential Comment Blood Urea Nitrogen 10 MG/DL Creatinine 1.04 MG/DL Random Glucose 123 MG/DL Calcium Level 8.9 MG/DL Sodium Level 137 MEQ/L Potassium Level 3.4 MEQ/L Chloride Level 103 MEQ/L Carbon Dioxide Level 25.5 MEQ/L Anion Gap 9 MEQ/L Estimat Glomerular Filtration Rate 60 ML/MIN [facility] Medical Decision Making Medical Screen Exam Complete: Yes Emergency Medical Condition: Yes Differential Diagnosis Anaphylaxis vs. angioedema Narrative Course 36yo F with lower lip swelling, redness/itching and nausea. Impression is more anaphylaxis. Pt given epinephrine, methylprednisolone, diphenhydramine, famotidine. Labs reviewed, no leukocytosis. BMP unremarkable. Pt reevaluated at bedside and feels better. States she is no long sob and itching improved. Lower lip is still very swollen. She feels it has gotten a little better. Pt has been saturating at 97% on RA with clear lungs. Patent airway. Discussed with Dr. Eugene and accepted to Dr. Diego's service for observation. Diagnosis Primary Impression: Anaphylaxis Qualified Codes: T78.2XXA - Anaphylactic shock, unspecified, initial encounter Admitting Information Admitting Physician Requests: Observation Scripts Prednisone (Prednisone) 10 Mg Tab 10 MG PO DAILY for Allergic Reaction, #10 TAB 0 Refills Take 20mg twice daily x 1 day, decrease down to 20mg once daily x 2 days, then decrease to 10 mg once daily x 2 days, then stop. Prov: Kandi Rascon 09/07/17 Epinephrine Inj (Epipen 2-Darvin Inj) 0.3 Mg/0.3 Ml Pfpen 0.3 MG IM ONCE Y for ALLERGIC REACTION, #1 PACK 0 Refills Prov: Kandi Rascon 09/07/17 Yocasta Fishman DO Sep 06, 2017 23:31
[2017-09-06] MEDS ORDERED: SOMA350T PO (23:45)
[2017-09-06] MEDS ORDERED: OXYB5TAB8 PO (23:45)
[2017-09-07 00:01] LABS: AUTOMATED NEUTROPHIL # 5.1 TH/MM3 (1.8-7.7); BASOPHIL # 0.1 TH/MM3 (0-0.2); BASOPHIL % 0.7 % (0.0-2.0); EOSINOPHIL # 0.5 TH/MM3 (0-0.4); EOSINOPHIL % 5.4 % (0.0-4.0); HEMATOCRIT 34.9 % (35.0-46.0); HEMOGLOBIN 12.3 GM/DL (11.6-15.3); LYMPH % 32.8 % (9.0-44.0); LYMPHOCYTE # 3.1 TH/MM3 (1.0-4.8); MEAN CELL VOLUME 82.5 FL (80.0-100.0); MEAN CORPUSCULAR HEMOGLOBIN 29.1 PG (27.0-34.0); MEAN CORPUSCULAR HGB CONC 35.3 % (32.0-36.0); MEAN PLATELET VOLUME 7.9 FL (7.0-11.0); MONO % 8.1 % (0.0-8.0); MONOCYTE # 0.8 TH/MM3 (0-0.9); PLATELET COUNT 258 TH/MM3 (150-450); RED BLOOD COUNT 4.23 MIL/MM3 (4.00-5.30); RED CELL DISTRIBUTION WIDTH 14.7 % (11.6-17.2); WHITE BLOOD COUNT 9.6 TH/MM3 (4.0-11.0)
[2017-09-07 00:16] LABS: BICARBONATE 25.5 MEQ/L (21.0-32.0); CALCIUM 8.9 MG/DL (8.5-10.1); CREATININE 1.04 MG/DL (0.50-1.00)
[2017-09-07 01:00] VITALS: BP 124/80; PULSE 89; RESP 16; O2SAT 93
[2017-09-07 03:00] VITALS: BP 125/78; PULSE 90; RESP 16; O2SAT 97
[2017-09-07 06:00] VITALS: BP 133/80; PULSE 95; RESP 18; O2SAT 95
[2017-09-07] MEDS ORDERED: EPIP0.3I IM (08:18)
[2017-09-07] MEDS ORDERED: PRED10 PO ×2 (08:22→08:23)
--- NOTE | 2017-09-07 08:26 | HHI.HP ---
HPI Service [facility] Hospitalists Primary Care Physician Ruslan Alvarez M.D. Admission Diagnosis Anaphylaxis Chief Complaint: Lip swelling, SOB Travel History International Travel<30 Days: No Contact w/Intl Traveler <30 Da: No Traveled to Known Affected Are: No History of Present Illness Ms. Mancilla is a pleasant 36 y/o WF with anxiety and ADD who [place] [facility] [place] with complaints of lip swelling, itching and redness in bilateral arms, difficulty swallowing and SOB. Pt started taking two new medications yesterday, Oxybutynin and an OTC cold medication, Chlor tabs ( Chlorpheniramine). Said she started having right lower lip swelling about 3 hours prior to reporting to the ED. She then started itching about an hour prior to arrival. Pt began having some difficulty swallowing and felt mildly SOB and this prompted her evaluation in the ED. She reports that she had similar lip swelling and mild itching when she had previously had products with red dye in it before but it was not as severe of a reaction as this was. Pt has some nausea but no vomiting. Denies any chest pain, new abdominal pain, focal weakness or numbness. Pt is being worked up as an outpt for hematuria and urinary incontinence which is why she was started on oxybutynin yesterday. In the ED the pt was given Solu-Medrol, Epinephrine, Famotidine and IV Benadryl and feels that she has returned almost completely to her baseline. She still has some mild lower lip swelling but otherwise is doing much better and wants to go home. Denies any family history of angioedema or use of ANDRES inhibitors. Review of Systems Constitutional: DENIES: Fever, Chills Eyes: DENIES: Vision loss Ears, nose, mouth, throat: COMPLAINS OF: Nasal discharge, Running Nose, DENIES : Vertigo Respiratory: COMPLAINS OF: Shortness of breath, DENIES: Cough Cardiovascular: DENIES: Chest pain, Lower Extremity Edema Gastrointestinal: COMPLAINS OF: Nausea, DENIES: Constipation, Diarrhea, GERD, Vomiting Genitourinary: COMPLAINS OF: Urinary incontinence, Hematuria Musculoskeletal: DENIES: Back pain, Neck pain Integumentary: DENIES: Rash Neurologic: DENIES: Headache Psychiatric: DENIES: Confusion Past Family Social History Past Medical History ADD Anxiety Hx of cervical dysplasia Ovarian cysts Hematuria and urinary incontinence Past Surgical History Tubal ligation Appendectomy Partial hysterectomy with left oophorectomy Exploratory laparoscopy Reported Medications Ditropan (Oxybutynin Chloride) 5 Mg Tab 5 Mg PO Q12HR Soma (Carisoprodol) 350 Mg Tab 350 Mg PO HS PRN Adderall (Amphetamine-Dextroamphetamine) 20 Mg Tab 20 Mg PO BID Avoid late evening doses. Space doses at least 4 to 6 hours if more than once/day dosing. Ibuprofen 800 Mg Tab 800 Mg PO TID Trazodone (Trazodone HCl) 100 Mg Tablet 100 Mg PO HS Klonopin (Clonazepam) 1 Mg Tab 1 Mg PO HS Klonopin (Clonazepam) 0.5 Mg Tab 0.5 Mg PO DAILY Zoloft (Sertraline HCl) 100 Mg Tab 150 Mg PO DAILY Allergies: Coded Allergies: red dye (Unverified Allergy, Mild, 07/27/17) latex (Unverified Allergy, Unknown, Itching, 07/27/17) Family History Noncontributory Social History (+)Tobacco use, smoked as much as 2-3 packs per day but recently has cut back to 1/2 ppd Denies any alcohol use Denies any illicit drug use Pt has two children, 20 y/o daughter and 16 y/o son Physical Exam Vital Signs Vital Signs Date Time Temp Pulse Resp B/P (MAP) Pulse Ox O2 Delivery O2 Flow Rate FiO2 09/07/17 06:00 95 18 133/80 (97) 95 Room Air 09/07/17 03:00 90 16 125/78 (94) 97 Room Air 09/07/17 01:00 89 16 124/80 (95) 93 Room Air 09/06/17 23:38 80 130/66 09/06/17 23:09 98.9 107 18 154/87 (109) 97 Physical Exam GENERAL: This is a well-nourished, well-developed patient, in no apparent distress. SKIN: No rashes, ecchymoses or lesions. Cool and dry. HEENT: Atraumatic. Normocephalic. No temporal or scalp tenderness. No scleral icterus. Uvula midline. Bottom lip still mildly swollen. Airway patent. NECK: Trachea midline, supple, nontender. CARDIO: Regular. RESP: CTA bilaterally. No wheezes, rales, or rhonchi. ABD: +BS, soft, non-tender, nondistended. EXT: Extremities without clubbing, cyanosis, or edema. NEURO: Awake and alert. Motor and sensory grossly within normal limits. Normal speech. Laboratory Laboratory Tests Test 09/06/17 23:50 White Blood Count 9.6 Red Blood Count 4.23 Hemoglobin 12.3 Hematocrit 34.9 Mean Corpuscular Volume 82.5 Mean Corpuscular Hemoglobin 29.1 Mean Corpuscular Hemoglobin Concent 35.3 Red Cell Distribution Width 14.7 Platelet Count 258 Mean Platelet Volume 7.9 Neutrophils (%) (Auto) 53.0 Lymphocytes (%) (Auto) 32.8 Monocytes (%) (Auto) 8.1 Eosinophils (%) (Auto) 5.4 Basophils (%) (Auto) 0.7 Neutrophils # (Auto) 5.1 Lymphocytes # (Auto) 3.1 Monocytes # (Auto) 0.8 Eosinophils # (Auto) 0.5 Basophils # (Auto) 0.1 CBC Comment DIFF FINAL Differential Comment Blood Urea Nitrogen 10 Creatinine 1.04 Random Glucose 123 Calcium Level 8.9 Sodium Level 137 Potassium Level 3.4 Chloride Level 103 Carbon Dioxide Level 25.5 Anion Gap 9 Estimat Glomerular Filtration Rate 60 Result Diagram: 09/06/17234909/06/172349 Caprini VTE Risk Assessment Caprini VTE Risk Assessment: No/Low Risk (score <= 1) Caprini Risk Assessment Model Point Value = 1 Point Value = 2 Point Value = 3 Point Value = 5 Age 41-60 Minor surgery BMI > 25 kg/m2 Swollen legs Varicose veins or History of unexplained or recurrent spontaneous Oral contraceptives or hormone replacement Sepsis (< 1 month) Serious lung disease, including pneumonia (< 1 month) Abnormal pulmonary function Acute myocardial infarction Congestive heart failure (< 1 month) History of inflammatory bowel disease Medical patient at bed rest Age 61-74 Arthroscopic surgery Major open surgery (> 45 min) Laparoscopic surgery (> 45 min) Malignancy Confined to bed (> 72 hours) Immobilizing plaster cast Central venous access Age >= 75 History of VTE Family history of VTE Factor V Leiden Prothrombin [id number] Lupus anticoagulant Anticardiolipin antibodies Elevated serum homocysteine Heparin-induced thrombocytopenia Other congenital or acquired thrombophilia Stroke (< 1 month) Elective arthroplasty Hip, pelvis, or leg fracture Acute spinal cord injury (< 1 month) Prophylaxis Regimen Total Risk Factor Score Risk Level Prophylaxis Regimen 0-1 Low Early ambulation 2 Moderate Order ONE of the following: *Sequential Compression Device (SCD) *Heparin 5000 units SQ BID 3-4 Higher Order ONE of the following medications: *Heparin 5000 units SQ TID *Enoxaparin/Lovenox 40 mg SQ daily (WT < 150 kg, CrCl > 30 mL/min) *Enoxaparin/Lovenox 30 mg SQ daily (WT < 150 kg, CrCl > 10-29 mL/min) *Enoxaparin/Lovenox 30 mg SQ BID (WT < 150 kg, CrCl > 30 mL/min) AND/OR *Sequential Compression Device (SCD) 5 or more Highest Order ONE of the following medications: *Heparin 5000 units SQ TID (Preferred with Epidurals) *Enoxaparin/Lovenox 40 mg SQ daily (WT < 150 kg, CrCl > 30 mL/min) *Enoxaparin/Lovenox 30 mg SQ daily (WT < 150 kg, CrCl > 10-29 mL/min) *Enoxaparin/Lovenox 30 mg SQ BID (WT < 150 kg, CrCl > 30 mL/min) AND *Sequential Compression Device (SCD) Assessment and Plan Problem List: (1) Anaphylaxis ICD Codes: T78.2XXA - Anaphylactic shock, unspecified, initial encounter Status: Acute Plan: - Pt is a 36 y/o female with anxiety and ADD who [place] [facility] [place] with complaints of lip swelling, itching and redness in bilateral arms, difficulty swallowing and SOB. - Pt started taking two new medications yesterday, Oxybutynin and an OTC cold medication, Chlor tabs (Chlorpheniramine). - She started having right lower lip swelling about 3 hours prior to reporting to the ED and then started itching about an hour prior to arrival. When she began having some difficulty swallowing and felt mildly SOB and this prompted her evaluation in the ED. - Pt is being worked up as an outpt for hematuria and urinary incontinence which is why she was started on oxybutynin yesterday. - Pt was given Solu-Medrol, Epinephrine, Famotidine and IV Benadryl and feels that she has returned almost completely to her baseline. She still has some mild lower lip swelling but otherwise is doing much better and wants to go home. - Her labs noted a minimal hypokalemia but pt did not want any oral replacement , states that she will eat some more bananas at home - Her Creatinine was higher than baseline, 1.03, but states that she has been drinking plenty of water at home. She wants to follow with her PCP regarding this. I will give her a copy of her labs to provide to her PCP. - We will continue a Prednisone taper 20mg BID x 1 day --> 20mg once daily x 2 days --> 10mg once daily x 2 days --> then stop - She will continue oral Benadryl 25mg Q6H x 2 days --> 25mg TID x 2 days --> 25mg BID x 1 day --> then stop - She will be prescribed an EpiPen as well upon discharge - Pt is to followup with her PCP, Dr. Alvarez, in 1 week - She is to stop the OTC cold medication and the Oxybutynin until she follows up with her PCP for further instructions. Assessment and Plan Patient examined. Assessment and plan formulated with Kandi Rascon PA-C. I agree with the above. allergic reaction. felt to be oxybutynin most likely d/c home with prednisone and benadryl taper pt very eager for d/c and feels "much better". Problem Qualifiers (1) Anaphylaxis: Qualified Codes: T78.2XXA - Anaphylactic shock, unspecified, initial encounter Kandi Rascon Sep 07, 2017 08:26 Boris Diego MD Sep 07, 2017 11:05
--- NOTE | 2017-09-07 08:48 | HHI.DCPOC ---
Discharge Care Plan Diagnosis: (1) Anaphylaxis Goals to Promote Your Health - She will continue a Prednisone taper 20mg twice daily x 1 day --> 20mg once daily x 2 days --> 10mg once daily x 2 days --> then stop - She will continue oral Benadryl 25mg every 6 hours x 2 days --> 25mg three times daily x 2 days --> 25mg twice daily x 1 day --> then stop - She will be prescribed an EpiPen as well upon discharge - She is to stop the OTC cold medication and the Oxybutynin until she follows up with her PCP for further instructions. - Pt is to followup with her PCP, Dr. Alvarez, in 1 week. Call for an appt. Directions to Meet Your Goals Take your medications as prescribed Follow your dietary instruction Follow activity as directed Keep your appointments as scheduled Take your immunizations and boosters as scheduled If your symptoms worsen call your PCP, if no PCP go to Urgent Care Center or Emergency Room Smoking is Dangerous to Your Health. Avoid second hand smoke Call the 24-hour hour crisis hotline for domestic abuse at Kandi Rascon Sep 07, 2017 08:48
[2017-09-07] MEDS ORDERED: predniSONE 20 MG TAB PO ONE (09:30)
== END 2017-09-07 09:54 | disposition home or self-care (01) ==
LOC: NEPD 23:04 → NEDA 09-07 00:40
PROVIDERS: ADMIT Hospitalist; ATTEND Hospitalist
DX: T78.2XXA Anaphylactic shock, unspecified, initial encounter (principal); R06.02 Shortness of breath; R13.10 Dysphagia, unspecified; R32 Unspecified urinary incontinence; R11.0 Nausea; R31.9 Hematuria, unspecified; F41.9 Anxiety disorder, unspecified; F17.200 Nicotine dependence, unspecified, uncomplicated; Z79.899 Other long term (current) drug therapy
CPT/HCPCS: 80048; 85025; 96372; 96374; 96375; 99285; G0378; J0171; J1200; J2930; J7512

== ENCOUNTER 2018-01-26 23:58 | Emergency (ER) | payer OTHER ==
[~2018-01-26] VITALS: Ht 167.6 cm; Wt 113.0 kg
[~2018-01-26 23:58] MED LIST changes: -BACL10TA PO; +EPIP0.3I IM; +PRED10 PO; +SOMA350T PO
[2018-01-27 00:08] VITALS: BP 133/76; PULSE 93; RESP 20; TEMP 98.7; O2SAT 96
[2018-01-27] MEDS ORDERED: SODIUM CHLOR 0.9% 1000 ML INJ 1,000 ML IV SCH (00:34)
--- NOTE | 2018-01-27 00:38 | PD ---
HPI Chief Complaint: Allergic/Adverse Reaction Time Seen by Provider: 00:34 Travel History International Travel<30 days: No Contact w/Intl Traveler<30days: No Traveled to known affect area: No History of Present Illness HPI 37-year-old female presents to the emergency department for evaluation of allergic reaction. Patient has known allergic reaction to red dye with prior admission for anaphylaxis after exposure to red dye on her skin. Patient states that she has prescription for EpiPen but insurance will not pay for the prescription so she has not filled it. Patient states this evening just prior to arrival to the emergency department she was eating pork rinds that contain red dye that she was not aware of prior to ingesting the food. Patient immediately started feeling tingling in her skin and pruritus as well as of her lips with noted swelling and sensation of swelling to her tongue and posterior throat. No stridor or hoarseness no shortness of breath no wheezing no chest pain no near syncope or syncope also no abdominal cramping vomiting or diarrhea. Patient does not present with urticaria. Patient is taken no medications prior to arrival to the emergency department. PFSH Past Medical History Narrative Medical Anxiety anaphylaxis-red dye; nursing notes reviewed Anxiety: Yes Heart Rhythm Problems: No Cardiac Catheterization: No Cardiovascular Problems: No High Cholesterol: No Congestive Heart Failure: No Diabetes: No Diminished Hearing: No Immunizations Current: Yes Tetanus Vaccination: Unknown Influenza Vaccination: No ?: Not : 5 Para: 5 Miscarriage: 0 : 0 Tubal Ligation: Yes Past Surgical History Abdominal Surgery: Yes (exploratory laparotomy) Appendectomy: Yes Coronary Artery Bypass Graft: No Gynecologic Surgery: Yes (HYST) Hysterectomy: Yes Family History Family Myocardial Infarction: Yes (DAD AND MATERNAL GRANDFATHER) Social History Alcohol Use: No Tobacco Use: Yes (1 PPD) Substance Use: Yes (mj) Allergies-Medications (Allergen,Severity, Reaction): Coded Allergies: red dye (Unverified Allergy, Mild, 01/27/18) latex (Unverified Allergy, Unknown, Itching, 01/27/18) Reported Meds & Prescriptions Reported Meds & Active Scripts Active Medrol Dosepak (Methylprednisolone) 4 Mg Dspk 4 Mg PO DIRECTED Per Pharmacist direction Epipen 2-Darvin Inj (Epinephrine) 0.3 Mg/0.3 Ml Pfpen 0.3 Mg IM ONCE PRN Reported Adderall (Amphetamine-Dextroamphetamine) 20 Mg Tab 20 Mg PO BID Avoid late evening doses. Space doses at least 4 to 6 hours if more than once/day dosing. Trazodone (Trazodone HCl) 100 Mg Tablet 100 Mg PO HS Klonopin (Clonazepam) 1 Mg Tab 1 Mg PO HS Klonopin (Clonazepam) 0.5 Mg Tab 0.5 Mg PO DAILY Zoloft (Sertraline HCl) 100 Mg Tab 150 Mg PO DAILY Review of Systems Except as stated in HPI: all other systems reviewed are Neg Physical Exam Narrative GENERAL: Well-developed well-nourished female in no acute distress no respiratory distress no stridor or hoarseness SKIN: Warm and dry. No urticaria no excoriation HEAD: Normocephalic. EYES: No scleral icterus. No injection or drainage. ENT: Lower lip edema no tongue or posterior pharyngeal edema identified airways patent NECK: Supple, trachea midline. No JVD or lymphadenopathy. CARDIOVASCULAR: Regular rate and rhythm without murmurs, gallops, or rubs. RESPIRATORY: Breath sounds equal bilaterally. No accessory muscle use. GASTROINTESTINAL: Abdomen soft, non-tender, nondistended. MUSCULOSKELETAL: No cyanosis, or edema. BACK: Nontender without obvious deformity. No CVA tenderness. Data Data Last Documented VS Vital Signs Date Time Temp Pulse Resp B/P (MAP) Pulse Ox O2 Delivery O2 Flow Rate FiO2 01/27/18 03:09 100 18 144/71 (95) 97 Room Air 01/27/18 00:08 98.7 Orders Orders Ecg Monitoring (01/27/18 00:34) Iv Access Insert/Monitor (01/27/18 00:34) Oximetry (01/27/18 00:34) Diphenhydramine Inj (Benadryl Inj) (01/27/18 00:45) Methylprednisolone So Succ Inj (Solumedr (01/27/18 00:45) Famotidine Inj (Pepcid Inj) (01/27/18 00:45) Sodium Chlor 0.9% 1000 Ml Inj (Ns 1000 M (01/27/18 00:34) Sodium Chloride 0.9% Flush (Ns Flush) (01/27/18 00:45) Epinephrine (1:1000) Inj (Adrenalin (1:1 (01/27/18 00:45) Ed Discharge Order (01/27/18 03:51) [facility] Medical Decision Making Medical Screen Exam Complete: Yes Emergency Medical Condition: Yes Medical Record Reviewed: Yes Differential Diagnosis Anaphylaxis angioedema acute allergic reaction Narrative Course Patient placed on control clerk subassembly with continuous pulse oximetry IV access obtained epinephrine 1-1000, 3 cc IM administered along with Solu-Medrol 125 mg IV; Pepcid 20 mg IV; and Benadryl 25 mg IV @ 2:11 patient reports lower lip mild swelling persists but markedly improved does complain of some lip soreness and some tongue soreness but no throat swelling or tightness no difficulty swallowing no stridor or hoarseness. Patient's vital signs are remaining in normal range. Patient did however ingested an entire bag of pork grinds containing red dye; will observe 1 hour further if she continues to complain of any symptoms will admit patient for observation due to acute known allergic reaction to food dye. At 3:50 AM patient is desirous of being discharged to home symptoms have essentially resolved except for some mild residual swelling of the lower lip. Patient is tolerating oral hydration well. No tongue or throat swelling no difficulty swallowing no stridor or hoarseness no pruritus no urticaria. Diagnosis Primary Impression: Acute allergic reaction Qualified Codes: T78.40XA - Allergy, unspecified, initial encounter Referrals: Primary Care Physician Patient Instructions: General Instructions Additional Instructions: Complete course of steroid as prescribed Use EpiPen as prescribed Use dye free Benadryl per package directions over the next 7 days Use generic dye free Pepcid OTC or Zantac per package directions daily for 7 days Return to the emergency department for concerns or change in condition Follow-up with primary care provider call office to have follow-up appointment 1 day Complete course of steroid as prescribed Med/Other Pt SpecificInfo: Prescription(s) given Scripts Methylprednisolone Dosepak (Medrol Dosepak) 4 Mg Dspk 4 MG PO DIRECTED, #1 DSPK 0 Refills Per Pharmacist direction Prov: Kelin Magallon MD 01/27/18 Epinephrine Inj (Epipen 2-Darvin Inj) 0.3 Mg/0.3 Ml Pfpen 0.3 MG IM ONCE Y for ALLERGIC REACTION, #1 PACK 0 Refills Prov: Kelin Magallon MD 01/27/18 Disposition: 01 DISCHARGE HOME Condition: Stable Kelin Magallon MD Jan 27, 2018 00:38
[2018-01-27 00:39] VITALS: RESP 20; O2SAT 98
[2018-01-27] MEDS ORDERED: EPINEPHrine HCL (1:1000) 1 MG/ML VIAL IM ONE (00:45)
[2018-01-27] MEDS ORDERED: FAMOTIDINE 20 MG/2 ML VIAL IV PUSH ONE (00:45)
[2018-01-27] MEDS ORDERED: diphenhydrAMINE HCL 50 MG/ML VIAL IVP ONE (00:45)
[2018-01-27] MEDS ORDERED: SODIUM CHLORIDE 0.9% FLUSH 10 ML FLUSH IV FLUSH PRN (00:45)
[2018-01-27] MEDS ORDERED: methylPREDNISolone SOD SUCC 125 MG/2 ML VIAL IV PUSH ONE (00:45)
[2018-01-27 03:09] VITALS: BP 144/71; PULSE 100; RESP 18; O2SAT 97
[2018-01-27] MEDS ORDERED: EPIP0.3I IM (03:51)
[2018-01-27] MEDS ORDERED: MEDR4PAK PO (03:51)
[2018-01-27 04:02] VITALS: BP 154/72; PULSE 92; RESP 18; O2SAT 95
== END 2018-01-27 04:33 | disposition home or self-care (01) ==
LOC: NEPC 23:58
DX: T78.40XA Allergy, unspecified, initial encounter (principal); F17.200 Nicotine dependence, unspecified, uncomplicated
CPT/HCPCS: 96372; 96374; 96375; 99284; J0171; J1200; J2930; J7030

== ENCOUNTER 2018-03-16 16:14 | Inpatient (IN) ==
[2018-03-16] MEDS ORDERED: Sod Chloride 0.9% Inj 1,000 ML IV.SIG ONE ×2 (16:37→18:16)
--- NOTE | 2018-03-16 17:06 | ED ---
HPI General Chief complaint: Recheck/Abnormal Lab/Rx Stated complaint: Medical/Dr Sent Time Seen by Provider: 03/16/18 16:37 Source: patient and family Mode of arrival: ambulatory Limitations: no limitations History of Present Illness HPI narrative: Patient is a 37-year-old female presented to the emergency department for evaluation of nausea, vomiting, abdominal pain. Symptoms started 4-5 days ago. Patient reports subjective fevers and chills. Patient initially thought she had a urinary tract infection and went to an urgent care center. Patient was sent to the emergency department by the urgent care center to rule out DKA. Patient's glucose there was 589. Urinalysis had 2+ ketones. Patient denies any medical history. She does report increased thirst and increased frequency with urination. Patient has a history of urinary incontinence and has a bladder stimulator placed. She does state that she has been more incontinent over the last several days as well. She reports that she has suprapubic and epigastric abdominal pain. Pain does not radiate, is currently a 7 out of 10, cramping and aching in nature. Pain is constant. There are no alleviating factors, pain is exacerbated with movement. Patient reports that she vomited twice this morning. Related Data Home Medications Medication Instructions Recorded Confirmed clonazepam [Klonopin] 1 mg PO QAM 03/16/18 03/17/18 clonazepam [Klonopin] 2 mg PO QPM 03/16/18 03/17/18 dextroamphetamine-amphetamine 20 mg PO DAILY 03/16/18 03/17/18 [Adderall] epinephrine [EpiPen 2-Darvin] 0.3 mg IM Q15M PRN 03/16/18 03/16/18 sertraline [Zoloft] 150 mg PO DAILY 03/16/18 03/17/18 trazodone 150 mg PO QPM 03/16/18 03/17/18 dextroamphetamine-amphetamine 20 mg PO AC LUNCH 03/17/18 03/17/18 [Adderall] Allergies Allergy/AdvReac Type Severity Reaction Status Date / Time red dye Allergy Mild Anaphylaxis Verified 03/16/18 17:00 latex Allergy Unknown Itching Verified 03/16/18 17:00 Review of Systems Except as stated in HPI: all other systems reviewed are negative [facility] Medical History Medical History ADHD (Acute) Anxiety (Acute) Cervical cancer (Acute) History of hysterectomy (Acute) Insomnia (Acute) Surgical History Surgical History History of appendectomy (Acute) Social History Social History Substance History: No History of Abuse Second Hand Smoke Exposure: Yes Smoking Status: Current every day smoker Tobacco Type: Cigarettes How Often Do You Have a Drink Containing Alcohol: Never Recent Travel in [facility] within the Last 8 Weeks: No Recent Out of Country Travel within the Last 8 Weeks: No Immunization History Tetanus Immunization: >5 Years Hx Influenza Vaccine This Season: No Exam Narrative Exam Narrative: GENERAL: Overweight, well-developed, alert female presenting in no acute distress. SKIN: Focused skin assessment warm/dry. HEAD: Atraumatic. Normocephalic. EYES: Pupils equal and round. No scleral icterus. No injection or drainage. ENT: No nasal bleeding or discharge. Mucous membranes pink and moist. NECK: Trachea midline. No JVD. CARDIOVASCULAR: Tachycardic. No murmur appreciated. RESPIRATORY: No accessory muscle use. Clear to auscultation. Breath sounds equal bilaterally. GASTROINTESTINAL: Abdomen soft, tender to palpation epigastric and suprapubic region, nondistended. Hepatic and splenic margins not palpable. No rebound, no guarding. MUSCULOSKELETAL: No obvious deformities. No clubbing. No cyanosis. No edema. NEUROLOGICAL: Awake and alert. No obvious cranial nerve deficits. Motor grossly within normal limits. Normal speech. PSYCHIATRIC: Appropriate mood and affect; insight and judgment normal. Course Initial Documented Vital Signs Temperature 98.5 F 03/16/18 16:25 Pulse Rate 102 H 03/16/18 16:25 Respiratory Rate 16 03/16/18 16:25 Blood Pressure 156/74 H 03/16/18 16:25 Pulse Oximetry 97 03/16/18 16:25 Last Documented Vital Signs Temperature 97.5 F L 03/17/18 23:34 Pulse Rate 82 03/17/18 23:34 Respiratory Rate 18 03/17/18 23:34 Blood Pressure 118/57 L 03/17/18 23:34 Pulse Oximetry 97 03/17/18 23:34 Critical Care Time Critical Care Time: Yes Total Critical Care Time: 30 Attestation: Aggregate critical care time was 30 minutes. Time to perform other separately billable procedures was not included in the critical care time. My time did not include minutes spent treating any other patients simultaneously or on activities that did not directly contribute to the patient's treatment. The services I provided to this patient were to treat and/or prevent clinically significant deterioration that could result in: [Permanent neurological deficit and/or -] I provided critical care services requiring my management, as noted below: Chart data review, documentation time, medication orders and management, vital sign assessments/reviewing monitor data, ordering and reviewing lab tests, ordering and interpreting/reviewing x-rays and diagnostic studies, care of the patient and discussion of the patient with the admitting physicians. Medical Decision Making CRISSY Attestation CRISSY supervised visit: Yes Attestation: I, Dr. Dumont, have reviewed the advance practice practitioner' s documentation and am in agreement, met with the patient face to face, made the diagnosis, and the medical decision making was done by me. The patient was initially evaluated by [linnette edge]. Please see their complete history and physical. *My assessment and Findings: The patient presents with high blood sugar sent from urgent care, generalized weakness, polyuria polydipsia and nausea During the course of the patient's emergency department visit, the patient's history, examination, and differential diagnosis were reviewed with the patient. The patient was placed on a color television console monitor with oximetry and frequent blood pressure monitoring. The patient had [peripheral] IV access obtained and blood work sent for analysis. The patient's laboratory studies were reviewed and most remarkable for [ hyperglycemia with ketonuria, borderline anion gap, consistent with partially compensated DKA]. Radiology studies were reviewed and remarkable for [CT abdomen pelvis read by radiologist as small opacity of the left lung base could represent atelectasis versus small infiltrate, also a 3.1 cm mass in the right adnexa stable since prior CT in 2016 probably related to the right ovary, hepatomegaly with diffuse fatty change no focal lesion seen.] Patient was provided with 2 L normal saline bolus, IV insulin as well as subcu insulin, will be admitted to medicine for further management patient is compensated DKA MDM Narrative Medical decision making narrative: Patient presented from the urgent care center to rule out DKA. Labs and imaging ordered and pending, IV access established, patient was placed on telemetry monitoring continuous pulse oximetry. Chemistry and beta hydroxybutyrate process. Discussed with my attending physician. Patient was given 10 units of subcu insulin and 10 units of IV insulin. Patient was given Phenergan suppository for nausea. She was given a second liter of IV fluids. CT of the abd/pelvis reviewed. Dr. Plasencia accepted admit behalf of Dr. Serrano. Admit orders placed. Blood glucose is 282 after administration of insulin. Differential Diagnosis Differential Diagnosis: DKA versus hyperglycemia versus UTI versus cholecystitis versus gastroenteritis versus metabolic abnormality versus other Lab Data Lab results reviewed: Yes I reviewed the patient's lab results. Result diagrams: 03/18/18 05:39 03/18/18 05:39 Lab Results 03/16/18 03/16/18 03/16/18 Range/Units 16:58 16:58 16:58 WBC 10.7 (4.0-11.0) th/mm3 RBC 5.06 (4.00-5.30) mil/mm3 Hgb 14.0 (11.6-15.3) gm/dL Hct 41.6 (35.0-46.0) % MCV 82.3 (80.0-100.0) fL MCH 27.6 (27.0-34.0) pg MCHC 33.6 (32.0-36.0) % RDW 14.3 (11.6-17.2) % Plt Count 244 (150-450) th/mm3 MPV 8.8 (7.0-11.0) fL Neut % (Auto) 68.3 (16.0-70.0) % Lymph % (Auto) 24.3 (9.0-44.0) % [place] % (Auto) 4.4 (0.0-8.0) % Eos % (Auto) 2.5 (0.0-4.0) % Baso % (Auto) 0.5 (0.0-2.0) % Neut # (Auto) 7.3 (1.8-7.7) th/mm3 Lymph # (Auto) 2.6 (1.0-4.8) th/mm3 [place] # (Auto) 0.5 (0.0-0.9) th/mm3 Eos # (Auto) 0.3 (0.0-0.4) th/mm3 Baso # (Auto) 0.1 (0.0-0.2) th/mm3 WBC Differential . Differential Comment Auto diff final Sodium 132 L (136-145) meq/L Potassium 4.0 (3.5-5.1) meq/L Chloride 101 (98-107) meq/L Carbon Dioxide 21.4 (21.0-32.0) meq/L Anion Gap 10 (5-15) meq/L BUN 8 (7-18) mg/dL Creatinine 1.01 H (0.50-1.00) mg/dL Estimated GFR 61 L (>89) mL/min POC Glucose (68-110) mg/dl Random Glucose 525 H* (74-106) mg/dL Hemoglobin A1c (4.3-6.0) % Calcium 9.0 (8.5-10.1) mg/dL Total Bilirubin 0.3 (0.2-1.0) mg/dL AST 54 H (15-37) U/L ALT 45 (10-53) U/L Alkaline Phosphatase 156 H (45-117) U/L Total Protein 8.3 H (6.4-8.2) g/dL Albumin 3.7 (3.4-5.0) g/dL Lipase 200 (73-393) U/L Beta-Hydroxybutyric Acd 0.90 H (0.00-0.39) mmol/L Urine Color (Yellw/Straw) Urine Clarity (Clear) Urine pH (5.0-8.5) Ur Specific [place] (1.002-1.035) Urine Protein (Neg-Trace) mg/dL Urine Glucose (UA) (Negative) mg/dL Urine Ketones (Negative) mg/dL Urine Occult Blood (Negative) Urine Nitrate (Negative) Urine Bilirubin (Negative) Urine Urobilinogen (Less than 2) mg/dL Ur Leukocyte Esterase (Negative) Urine RBC (0-3) /hpf Urine WBC (0-5) /hpf Ur Squamous Epith Cells (0-5) /hpf Urine Bacteria (None) /hpf Urine Yeast (None) /hpf Micro UA Comment Urine Culture Comments 03/16/18 03/16/18 03/17/18 Range/Units 17:41 20:03 03:02 WBC (4.0-11.0) th/mm3 RBC (4.00-5.30) mil/mm3 Hgb (11.6-15.3) gm/dL Hct (35.0-46.0) % MCV (80.0-100.0) fL MCH (27.0-34.0) pg MCHC (32.0-36.0) % RDW (11.6-17.2) % Plt Count (150-450) th/mm3 MPV (7.0-11.0) fL Neut % (Auto) (16.0-70.0) % Lymph % (Auto) (9.0-44.0) % [place] % (Auto) (0.0-8.0) % Eos % (Auto) (0.0-4.0) % Baso % (Auto) (0.0-2.0) % Neut # (Auto) (1.8-7.7) th/mm3 Lymph # (Auto) (1.0-4.8) th/mm3 [place] # (Auto) (0.0-0.9) th/mm3 Eos # (Auto) (0.0-0.4) th/mm3 Baso # (Auto) (0.0-0.2) th/mm3 WBC Differential Differential Comment Sodium (136-145) meq/L Potassium (3.5-5.1) meq/L Chloride (98-107) meq/L Carbon Dioxide (21.0-32.0) meq/L Anion Gap (5-15) meq/L BUN (7-18) mg/dL Creatinine (0.50-1.00) mg/dL Estimated GFR (>89) mL/min POC Glucose 282 H 334 H (68-110) mg/dl Random Glucose (74-106) mg/dL Hemoglobin A1c (4.3-6.0) % Calcium (8.5-10.1) mg/dL Total Bilirubin (0.2-1.0) mg/dL AST (15-37) U/L ALT (10-53) U/L Alkaline Phosphatase (45-117) U/L Total Protein (6.4-8.2) g/dL Albumin (3.4-5.0) g/dL Lipase (73-393) U/L Beta-Hydroxybutyric Acd (0.00-0.39) mmol/L Urine Color Straw (Yellw/Straw) Urine Clarity Hazy H (Clear) Urine pH 6.0 (5.0-8.5) Ur Specific [place] 1.033 (1.002-1.035) Urine Protein Negative (Neg-Trace) mg/dL Urine Glucose (UA) 500 or greater (Negative) mg/dL Urine Ketones 20 (Negative) mg/dL Urine Occult Blood Small H (Negative) Urine Nitrate Negative (Negative) Urine Bilirubin Negative (Negative) Urine Urobilinogen Less than 2 (Less than 2) mg/dL Ur Leukocyte Esterase Negative (Negative) Urine RBC 1 (0-3) /hpf Urine WBC 2 (0-5) /hpf Ur Squamous Epith Cells 5 (0-5) /hpf Urine Bacteria Occasional H (None) /hpf Urine Yeast Occasional H (None) /hpf Micro UA Comment Culture not ind Urine Culture Comments Culture not ind 03/17/18 03/17/18 03/17/18 Range/Units 05:29 05:29 06:18 WBC (4.0-11.0) th/mm3 RBC (4.00-5.30) mil/mm3 Hgb (11.6-15.3) gm/dL Hct (35.0-46.0) % MCV (80.0-100.0) fL MCH (27.0-34.0) pg MCHC (32.0-36.0) % RDW (11.6-17.2) % Plt Count (150-450) th/mm3 MPV (7.0-11.0) fL Neut % (Auto) (16.0-70.0) % Lymph % (Auto) (9.0-44.0) % [place] % (Auto) (0.0-8.0) % Eos % (Auto) (0.0-4.0) % Baso % (Auto) (0.0-2.0) % Neut # (Auto) (1.8-7.7) th/mm3 Lymph # (Auto) (1.0-4.8) th/mm3 [place] # (Auto) (0.0-0.9) th/mm3 Eos # (Auto) (0.0-0.4) th/mm3 Baso # (Auto) (0.0-0.2) th/mm3 WBC Differential Differential Comment Sodium 141 (136-145) meq/L Potassium 3.4 L (3.5-5.1) meq/L Chloride 109 H D (98-107) meq/L Carbon Dioxide 20.2 L (21.0-32.0) meq/L Anion Gap 12 (5-15) meq/L BUN 8 (7-18) mg/dL Creatinine 0.75 (0.50-1.00) mg/dL Estimated GFR 86 L (>89) mL/min POC Glucose 357 H (68-110) mg/dl Random Glucose 302 H D (74-106) mg/dL Hemoglobin A1c 11.5 H (4.3-6.0) % Calcium 8.5 (8.5-10.1) mg/dL Total Bilirubin (0.2-1.0) mg/dL AST (15-37) U/L ALT (10-53) U/L Alkaline Phosphatase (45-117) U/L Total Protein (6.4-8.2) g/dL Albumin (3.4-5.0) g/dL Lipase (73-393) U/L Beta-Hydroxybutyric Acd 0.15 D (0.00-0.39) mmol/L Urine Color (Yellw/Straw) Urine Clarity (Clear) Urine pH (5.0-8.5) Ur Specific [place] (1.002-1.035) Urine Protein (Neg-Trace) mg/dL Urine Glucose (UA) (Negative) mg/dL Urine Ketones (Negative) mg/dL Urine Occult Blood (Negative) Urine Nitrate (Negative) Urine Bilirubin (Negative) Urine Urobilinogen (Less than 2) mg/dL Ur Leukocyte Esterase (Negative) Urine RBC (0-3) /hpf Urine WBC (0-5) /hpf Ur Squamous Epith Cells (0-5) /hpf Urine Bacteria (None) /hpf Urine Yeast (None) /hpf Micro UA Comment Urine Culture Comments 03/17/18 03/17/18 03/18/18 Range/Units 12:31 16:33 00:01 WBC (4.0-11.0) th/mm3 RBC (4.00-5.30) mil/mm3 Hgb (11.6-15.3) gm/dL Hct (35.0-46.0) % MCV (80.0-100.0) fL MCH (27.0-34.0) pg MCHC (32.0-36.0) % RDW (11.6-17.2) % Plt Count (150-450) th/mm3 MPV (7.0-11.0) fL Neut % (Auto) (16.0-70.0) % Lymph % (Auto) (9.0-44.0) % [place] % (Auto) (0.0-8.0) % Eos % (Auto) (0.0-4.0) % Baso % (Auto) (0.0-2.0) % Neut # (Auto) (1.8-7.7) th/mm3 Lymph # (Auto) (1.0-4.8) th/mm3 [place] # (Auto) (0.0-0.9) th/mm3 Eos # (Auto) (0.0-0.4) th/mm3 Baso # (Auto) (0.0-0.2) th/mm3 WBC Differential Differential Comment Sodium (136-145) meq/L Potassium (3.5-5.1) meq/L Chloride (98-107) meq/L Carbon Dioxide (21.0-32.0) meq/L Anion Gap (5-15) meq/L BUN (7-18) mg/dL Creatinine (0.50-1.00) mg/dL Estimated GFR (>89) mL/min POC Glucose 400 H 260 H 227 H (68-110) mg/dl Random Glucose (74-106) mg/dL Hemoglobin A1c (4.3-6.0) % Calcium (8.5-10.1) mg/dL Total Bilirubin (0.2-1.0) mg/dL AST (15-37) U/L ALT (10-53) U/L Alkaline Phosphatase (45-117) U/L Total Protein (6.4-8.2) g/dL Albumin (3.4-5.0) g/dL Lipase (73-393) U/L Beta-Hydroxybutyric Acd (0.00-0.39) mmol/L Urine Color (Yellw/Straw) Urine Clarity (Clear) Urine pH (5.0-8.5) Ur Specific [place] (1.002-1.035) Urine Protein (Neg-Trace) mg/dL Urine Glucose (UA) (Negative) mg/dL Urine Ketones (Negative) mg/dL Urine Occult Blood (Negative) Urine Nitrate (Negative) Urine Bilirubin (Negative) Urine Urobilinogen (Less than 2) mg/dL Ur Leukocyte Esterase (Negative) Urine RBC (0-3) /hpf Urine WBC (0-5) /hpf Ur Squamous Epith Cells (0-5) /hpf Urine Bacteria (None) /hpf Urine Yeast (None) /hpf Micro UA Comment Urine Culture Comments 03/18/18 03/18/18 03/18/18 Range/Units 05:39 05:39 06:07 WBC 9.1 (4.0-11.0) th/mm3 RBC 4.43 (4.00-5.30) mil/mm3 Hgb 12.3 (11.6-15.3) gm/dL Hct 36.2 (35.0-46.0) % MCV 81.7 (80.0-100.0) fL MCH 27.9 (27.0-34.0) pg MCHC 34.1 (32.0-36.0) % RDW 14.2 (11.6-17.2) % Plt Count 221 (150-450) th/mm3 MPV 8.6 (7.0-11.0) fL Neut % (Auto) 48.4 (16.0-70.0) % Lymph % (Auto) 42.7 (9.0-44.0) % [place] % (Auto) 4.8 (0.0-8.0) % Eos % (Auto) 3.7 (0.0-4.0) % Baso % (Auto) 0.4 (0.0-2.0) % Neut # (Auto) 4.4 (1.8-7.7) th/mm3 Lymph # (Auto) 3.9 (1.0-4.8) th/mm3 [place] # (Auto) 0.4 (0.0-0.9) th/mm3 Eos # (Auto) 0.3 (0.0-0.4) th/mm3 Baso # (Auto) 0.0 (0.0-0.2) th/mm3 WBC Differential . Differential Comment Auto diff final Sodium 142 (136-145) meq/L Potassium 3.3 L (3.5-5.1) meq/L Chloride 111 H (98-107) meq/L Carbon Dioxide 19.4 L (21.0-32.0) meq/L Anion Gap 12 (5-15) meq/L BUN 6 L (7-18) mg/dL Creatinine 0.63 (0.50-1.00) mg/dL Estimated GFR Greater than 89 (>89) mL/min POC Glucose 182 H (68-110) mg/dl Random Glucose 166 H D (74-106) mg/dL Hemoglobin A1c (4.3-6.0) % Calcium 8.6 (8.5-10.1) mg/dL Total Bilirubin (0.2-1.0) mg/dL AST (15-37) U/L ALT (10-53) U/L Alkaline Phosphatase (45-117) U/L Total Protein (6.4-8.2) g/dL Albumin (3.4-5.0) g/dL Lipase (73-393) U/L Beta-Hydroxybutyric Acd (0.00-0.39) mmol/L Urine Color (Yellw/Straw) Urine Clarity (Clear) Urine pH (5.0-8.5) Ur Specific [place] (1.002-1.035) Urine Protein (Neg-Trace) mg/dL Urine Glucose (UA) (Negative) mg/dL Urine Ketones (Negative) mg/dL Urine Occult Blood (Negative) Urine Nitrate (Negative) Urine Bilirubin (Negative) Urine Urobilinogen (Less than 2) mg/dL Ur Leukocyte Esterase (Negative) Urine RBC (0-3) /hpf Urine WBC (0-5) /hpf Ur Squamous Epith Cells (0-5) /hpf Urine Bacteria (None) /hpf Urine Yeast (None) /hpf Micro UA Comment Urine Culture Comments Imaging Data Radiologist's impression: Abdomen/Pelvis CT 03/16/18 16:49 CONCLUSION: 1. Small opacity at the left lung base could represent a small infiltrate or atelectasis. 2. 3.1 cm mass in the right adnexa stable from prior CT in 2016, probably related to the right ovary. 3. Hepatomegaly with diffuse fatty change. No focal lesions seen. Discharge Plan Discharge Disposition Patient Disposition: 30 Still Patient Discharge Condition Condition: Stable Discharge Details Diagnosis: DKA (diabetic ketoacidoses) Physicians Team ED Provider: Marky Dumont ED Midlevel Provider: Linnette Edge Primary Care Provider: Ruslan Alvarez V Attending Provider: Ronald Serrano Status ED Status: Left Department Discharge Information Discharge Date/Time: 03/16/18 21:50
[2018-03-16 17:35] LABS: Baso # (Auto) 0.1 th/mm3 (0.0-0.2); Baso % (Auto) 0.5 % (0.0-2.0); Eos # (Auto) 0.3 th/mm3 (0.0-0.4); Eos % (Auto) 2.5 % (0.0-4.0); Hematocrit 41.6 % (35.0-46.0); Lymph # (Auto) 2.6 th/mm3 (1.0-4.8); Lymph % (Auto) 24.3 % (9.0-44.0); Mean Corpuscular HGB Conc 33.6 % (32.0-36.0); Mean Corpuscular Hemoglobin 27.6 pg (27.0-34.0); Mean Corpuscular Volume 82.3 fL (80.0-100.0); Mean Platelet Volume 8.8 fL (7.0-11.0); Mono # (Auto) 0.5 th/mm3 (0.0-0.9); Mono % (Auto) 4.4 % (0.0-8.0); Neut # (Auto) 7.3 th/mm3 (1.8-7.7); Neut % (Auto) 68.3 % (16.0-70.0); Platelet Count 244 th/mm3 (150-450); Red Blood Count 5.06 mil/mm3 (4.00-5.30); Red Cell Distribution Width 14.3 % (11.6-17.2); White Blood Count 10.7 th/mm3 (4.0-11.0)
[2018-03-16 18:02] LABS: Alanine Aminotransferase 45 U/L (10-53); Albumin 3.7 g/dL (3.4-5.0); Alkaline Phosphatase 156 U/L (45-117); Anion Gap 10 meq/L (5-15); Aspartate Aminotransferase 54 U/L (15-37); Blood Urea Nitrogen 8 mg/dL (7-18); Carbon Dioxide 21.4 meq/L (21.0-32.0); Chloride 101 meq/L (98-107); Glomerular Filtration Rate 61 mL/min (>89); Lipase 200 U/L (73-393); Sodium 132 meq/L (136-145); Total Protein 8.3 g/dL (6.4-8.2)
[2018-03-16 18:03] LABS: Glucose,Random 525 mg/dL (74-106)
[2018-03-16] MEDS ORDERED: Promethazine 25 MG Supp RECTAL ONE (18:23)
[2018-03-16 18:25] LABS: Bacteria,Urine Occasional /hpf; Bilirubin,Urine Negative (Negative); Clarity,Urine Hazy (Clear); Color,Urine Straw (Yellw/Straw); Glucose,Urine (UA) 500 or Greater mg/dL (Negative); Leukocyte Esterase,Urine Negative (Negative); Nitrite,Urine Negative (Negative); Specific Gravity,Urine 1.033 (1.002-1.035); Squamous Epithelial Cell,Urine 5 /hpf (0-5)
--- NOTE | 2018-03-16 19:04 | CT ---
EXAM DATE: 03/16/2018 6:49 PM EDT AGE/SEX: 37 years / Female INDICATIONS: Abdominal pain. CLINICAL DATA: This is the patient's initial encounter. Patient reports that signs and symptoms have been present for 1 day and indicates a pain score of 4/10. MEDICAL/SURGICAL HISTORY: . Cervical cancer. Hysterectomy. ORAL CONTRAST: No oral contrast ingested. RADIATION DOSE: 6.54 CTDI (mGy) COMPARISON: [facility], CT ABDOMEN & PELVIS W CONTRAST, 07/14/2016. [facility], CT ABDOMEN & PELVIS W CONTRAS T, 07/23/2013. [facility], US TRANSVAGINAL, 07/26/2016. . TECHNIQUE: Multiple contiguous axial images were obtained through the abdomen and pelvis following b olus infusion of 75 ml Omnipaque 350 (iohexol) nonionic water-soluble contrast as a single exam dos e. No oral contrast ingested. Using automated exposure control and adjustment of the mA and/or kV ac cording to patient size, radiation dose was kept as low as reasonably achievable to obtain optimal di agnostic quality images. DICOM format image data is available electronically for review and comparis on. FINDINGS: Lower Lungs: Minimal left basilar atelectasis or infiltrate. Liver: The liver has a homogeneous density without space-occupying lesion, with diffusely decreased a ttenuation characteristic of diffuse fatty change.. Craniocaudal dimension of the liver is 24.3 cm. T here is no dilation of the biliary tree. No calcified gallstones. Spleen: Homogeneous density without enlargement. Pancreas: Unremarkable without mass or calcification. Kidneys: Normal in size and shape. No evidence of mass or hydronephrosis. Adrenal Glands: Unremarkable. Aorta: The aorta and proximal iliac vessels are grossly unremarkable without aneurysmal dilation. Bowel/Mesentery: No dilated loops of small or large bowel. Abdominal Wall: Intact. Retroperitoneum: No evidence of adenopathy in the retrocrural, para-aortic, or deep pelvic regions. Bladder: Contours are smooth. Reproductive Organs: 3.1 cm smooth margin mass superior to the urinary bladder, probably right ovari an in origin with mean CT density 64 Hounsfield units, unchanged in size and appearance when compared to prior CT 07/14/2016. Status post hysterectomy and left oophorectomy. Inguinal: The inguinal region is unremarkable without evidence of adenopathy. Bony Structures: Unremarkable. Metallic stimulator device in the left gluteal region entering the sa yenny. CONCLUSION: 1. Small opacity at the left lung base could represent a small infiltrate or atelectasis. 2. 3.1 cm mass in the right adnexa stable from prior CT in 2016, probably related to the right ovary . 3. Hepatomegaly with diffuse fatty change. No focal lesions seen. Electronically signed by: Max Tena MD 03/16/2018 7:03 PM EDT
[2018-03-16] MEDS: Sod Chloride 0.9% Inj 1,000 ML IV.CONT SCH (20:25)
[2018-03-16] MEDS ORDERED: Bisacodyl 10 MG Supp RECTAL PRN (20:45)
[2018-03-16] MEDS ORDERED: Dextrose 50% in Water 50 ML Vial IV.PUSH PRN (20:50)
--- NOTE | 2018-03-16 21:18 | P.HP ---
History of Present Illness Service: [facility] hospitalist Primary Care Physician: Ruslan Alvarez MD Chief Complaint: urine frequency nausea hyperglycemia History of Present Illness: 37-year-old white female presented to the emergency department for evaluation of nausea vomiting abdominal pain which started approximately 4-5 days ago. Patient reports just not feeling well may have had some fevers some chills initially thought she had a urinary tract infection went to an urgent care center they are she had a glucose check which was greater than 500. Patient was referred to [place] emergency room. Patient has been having increasing thirst increasing frequency with urination. Patient has had urinary incontinence and has a bladder stimulator, patient does state she has been more incontinent over the last several days. She reports that she has some suprapubic and epigastric abdominal pain does not radiate and is about a 4/10 currently, cramping in nature. On initial evaluation in the emergency room patient was found to have an elevated sugar greater than 500 with a positive beta butyrate consistent with mild DKA normal anion gap she was given IV fluids and normal insulin with improvement in her sugar to 282 spleen admitted now for further evaluation with probable new onset diabetes. - Diagnosis (1) DKA (diabetic ketoacidoses) (2) New onset type 2 diabetes mellitus (3) Anxiety (4) History of ADHD Inpatient Certification: I certify that the inpatient services were ordered in accordance with Medicare regulations governing the order. This includes certification that hospital inpatient services are reasonable and necessary and in the case of services not specified as inpatient-only under 42 CFR 419.22(n), that they are appropriately provided as inpatient services in accordance to with the 2-midnight benchmark under 43 CFR 412.3(e) Estimated Total Length of Stay (Days): 3 Plans for Post Hospital Care: Home Review of Systems All other systems reviewed negative except as stated in HPI PMFSH - History History Provided By: Patient - Medical History Medical History: Medical History (Last Reviewed 03/16/18 @ 17:03 by REYNA Waters) ADHD Anxiety Cervical cancer History of hysterectomy Insomnia - Surgical History Surgical History: Surgical History (Last Reviewed 03/16/18 @ 17:03 by REYNA Waters) History of appendectomy - Tobacco History Tobacco Use In Past 30 Days: Yes Smoking Status: Current some day smoker Tobacco Type: Cigarettes - Alcohol History How Often Do You Have a Drink Containing Alcohol: Never - Substance Use History Substance History: No History of Abuse - Travel History Recent Travel in the [place] Within the Last 8 Weeks: No Recent Travel Out of the Country Within the Last 8 Weeks: No - Immunization History Tetanus Immunization: >5 Years Hx Influenza Vaccine This Season: No Medications and Allergies Active Medications: Active Medications Al Hydroxide/Mg Hydroxide (Milk Of Magnesia Liq) 30 ml PO Q12H PRN PRN Reason: Mild Constipation Amphetamine/Dextroamphetamine (Adderall) 20 mg PO BID [facility] Bisacodyl (Dulcolax Supp) 10 mg RECTAL DAILY PRN PRN Reason: SEVERE CONSITIPATION Clonazepam (Klonopin) 0.5 mg PO QAM [facility]CE Clonazepam (Klonopin) 1 mg PO QPM [facility]CE Clonazepam (Klonopin) 1 mg PO ONCE ONE Stop: 03/16/18 20:59 Dextrose (D50w Vial) 50 ml IV.PUSH UNSCH PRN PRN Reason: PER HYPOGLYCEMIA PROTOCOL Glucagon (Glucagon Inj) 1 mg OTHER PRN PRN PRN Reason: for Hypoglycemia Protocol Sodium Chloride (Ns Inj) 1,000 mls @ 125 mls/hr IV.CONT .Q8H [facility] Last Admin: 03/16/18 20:25 Dose: 125 mls/hr Sodium Chloride (Ns Inj) 1,000 mls @ 100 mls/hr IV.CONT .Q10H [facility] Insulin Aspart (Novolog Insulin Correctional Sugar Inj) 0 unit SQ Q6HR [facility]; Protocol Lactulose (Lactulose Liq) 30 ml PO DAILY PRN PRN Reason: SEVERE CONSITIPATION Sennosides (Senokot) 17.2 mg PO Q12H PRN PRN Reason: Moderate Constipation Sertraline HCl (Zoloft) 100 mg PO DAILY [facility] Sodium Chloride (Ns Flush) 2 ml IV.FLUSH PRN PRN PRN Reason: FLUSH AFTER USING IV ACCESS Trazodone HCl (Desyrel) 100 mg PO QPM MARCE Trazodone HCl (Desyrel) 100 mg PO ONCE ONE Stop: 03/16/18 20:57 Allergies Allergy/AdvReac Type Severity Reaction Status Date / Time red dye Allergy Mild Anaphylaxis Verified 03/16/18 17:00 latex Allergy Unknown Itching Verified 03/16/18 17:00 Home Medications Medication Instructions Recorded Confirmed Type clonazepam [Klonopin] 0.5 mg PO QAM 03/16/18 03/16/18 History clonazepam [Klonopin] 1 mg PO QPM 03/16/18 03/16/18 History dextroamphetamine-amphetamine 20 mg PO BID 03/16/18 03/16/18 History [Adderall] epinephrine [EpiPen 2-Darvin] 0.3 mg IM Q15M PRN 03/16/18 03/16/18 History sertraline [Zoloft] 100 mg PO DAILY 03/16/18 03/16/18 History trazodone 100 mg PO QPM 03/16/18 03/16/18 History Exam Vital signs: Vital Signs 03/16/18 16:25 03/16/18 16:43 03/16/18 17:07 Temperature 98.5 F Pulse Rate 102 H 98 H Respiratory Rate Blood Pressure 156/74 H 134/71 Pulse Oximetry 97 97 Intake & Output 03/16/18 03/16/18 03/17/18 06:59 18:59 06:59 Intake Total 1000 / 1000 Balance 1000 / 1000 Weight 106.141 kg Intake: IV 1000 / 1000 NS Inj 1,000 ML @ Wide Open IV. 1000 / 1000 SIG BOLUS ONE Rx#:[id number] Narrative: GENERAL: SKIN: Warm and dry. HEAD: Atraumatic. Normocephalic. EYES: Pupils equal and round. No scleral icterus. No injection or drainage. ENT: No nasal bleeding or discharge. Mucous membranes pink and moist. NECK: Trachea midline. No JVD. CARDIOVASCULAR: Regular rate and rhythm. RESPIRATORY: No accessory muscle use. Clear to auscultation. Breath sounds equal bilaterally. GASTROINTESTINAL: Abdomen soft, mild-tender, nondistended. Hepatic and splenic margins not palpable. MUSCULOSKELETAL: Extremities without clubbing, cyanosis, or edema. No obvious deformities. NEUROLOGICAL: Awake and alert. No obvious cranial nerve deficits. Motor grossly within normal limits. Five out of 5 muscle strength in the arms and legs. Normal speech. PSYCHIATRIC: Appropriate mood and affect; insight and judgment normal. Results - Labs CBC & Chem 7: 03/16/18 16:58 03/16/18 16:58 Labs: Laboratory Results - last 24 hr 03/16/18 03/16/18 03/16/18 16:58 16:58 16:58 WBC 10.7 RBC 5.06 Hgb 14.0 Hct 41.6 MCV 82.3 MCH 27.6 MCHC 33.6 RDW 14.3 Plt Count 244 MPV 8.8 Neut % (Auto) 68.3 Lymph % (Auto) 24.3 Leon % (Auto) 4.4 Eos % (Auto) 2.5 Baso % (Auto) 0.5 Neut # (Auto) 7.3 Lymph # (Auto) 2.6 Leon # (Auto) 0.5 Eos # (Auto) 0.3 Baso # (Auto) 0.1 WBC Differential . Differential Comment Auto diff final Sodium 132 L Potassium 4.0 Chloride 101 Carbon Dioxide 21.4 Anion Gap 10 BUN 8 Creatinine 1.01 H Estimated GFR 61 L POC Glucose Random Glucose 525 H* Calcium 9.0 Total Bilirubin 0.3 AST 54 H ALT 45 Alkaline Phosphatase 156 H Total Protein 8.3 H Albumin 3.7 Lipase 200 Beta-Hydroxybutyric Acd 0.90 H Urine Color Urine Clarity Urine pH Ur Specific [place] Urine Protein Urine Glucose (UA) Urine Ketones Urine Occult Blood Urine Nitrate Urine Bilirubin Urine Urobilinogen Ur Leukocyte Esterase Urine RBC Urine WBC Ur Squamous Epith Cells Urine Bacteria Urine Yeast Micro UA Comment Urine Culture Comments 03/16/18 03/16/18 17:41 20:03 WBC RBC Hgb Hct MCV MCH MCHC RDW Plt Count MPV Neut % (Auto) Lymph % (Auto) [place] % (Auto) Eos % (Auto) Baso % (Auto) Neut # (Auto) Lymph # (Auto) [place] # (Auto) Eos # (Auto) Baso # (Auto) WBC Differential Differential Comment Sodium Potassium Chloride Carbon Dioxide Anion Gap BUN Creatinine Estimated GFR POC Glucose 282 H Random Glucose Calcium Total Bilirubin AST ALT Alkaline Phosphatase Total Protein Albumin Lipase Beta-Hydroxybutyric Acd Urine Color Straw Urine Clarity Hazy H Urine pH 6.0 Ur Specific [place] 1.033 Urine Protein Negative Urine Glucose (UA) 500 or greater Urine Ketones 20 Urine Occult Blood Small H Urine Nitrate Negative Urine Bilirubin Negative Urine Urobilinogen Less than 2 Ur Leukocyte Esterase Negative Urine RBC 1 Urine WBC 2 Ur Squamous Epith Cells 5 Urine Bacteria Occasional H Urine Yeast Occasional H Micro UA Comment Culture not ind Urine Culture Comments Culture not ind - Imaging Impressions Abdomen/Pelvis CT 03/16/18 16:49 CONCLUSION: 1. Small opacity at the left lung base could represent a small infiltrate or atelectasis. 2. 3.1 cm mass in the right adnexa stable from prior CT in 2016, probably related to the right ovary. 3. Hepatomegaly with diffuse fatty change. No focal lesions seen. Caprini VTE Risk Assessment Caprini VTE Risk Assessment: No/Low Risk (score <= 1) Caprini Risk Assessment Model: Point Value = 1 Point Value = 2 Point Value = 3 Point Value = 5 Age 41-60 Minor surgery BMI > 25 kg/m2 Swollen legs Varicose veins or History of unexplained or recurrent spontaneous Oral contraceptives or hormone replacement Sepsis (< 1 month) Serious lung disease, including pneumonia (< 1 month) Abnormal pulmonary function Acute myocardial infarction Congestive heart failure (< 1 month) History of inflammatory bowel disease Medical patient at bed rest Age 61-74 Arthroscopic surgery Major open surgery (> 45 min) Laparoscopic surgery (> 45 min) Malignancy Confined to bed (> 72 hours) Immobilizing plaster cast Central venous access Age >= 75 History of VTE Family history of VTE Factor V Leiden Prothrombin [id number] Lupus anticoagulant Anticardiolipin antibodies Elevated serum homocysteine Heparin-induced thrombocytopenia Other congenital or acquired thrombophilia Stroke (< 1 month) Elective arthroplasty Hip, pelvis, or leg fracture Acute spinal cord injury (< 1 month) Prophylaxis Regimen: Total Risk Factor Score Risk Level Prophylaxis Regimen 0-1 Low Early ambulation 2 Moderate Order ONE of the following: *Sequential Compression Device (SCD) *Heparin 5000 units SQ BID 3-4 Higher Order ONE of the following medications: *Heparin 5000 units SQ TID *Enoxaparin/Lovenox 40 mg SQ daily (WT < 150 kg, CrCl > 30 mL/min) *Enoxaparin/Lovenox 30 mg SQ daily (WT < 150 kg, CrCl > 10-29 mL/min) *Enoxaparin/Lovenox 30 mg SQ BID (WT < 150 kg, CrCl > 30 mL/min) AND/OR *Sequential Compression Device (SCD) 5 or more Highest Order ONE of the following medications: *Heparin 5000 units SQ TID (Preferred with Epidurals) *Enoxaparin/Lovenox 40 mg SQ daily (WT < 150 kg, CrCl > 30 mL/min) *Enoxaparin/Lovenox 30 mg SQ daily (WT < 150 kg, CrCl > 10-29 mL/min) *Enoxaparin/Lovenox 30 mg SQ BID (WT < 150 kg, CrCl > 30 mL/min) AND *Sequential Compression Device (SCD) Assessment and Plan - Assessment (1) DKA (diabetic ketoacidoses) Code(s): E13.10 - Other specified diabetes mellitus with ketoacidosis without coma Status: Acute Plan: Patient with mild dka and has improved with IV fluid and insulin will follow labs use sliding scale continue IV (2) New onset type 2 diabetes mellitus Code(s): E11.9 - Type 2 diabetes mellitus without complications Status: Acute Plan: patiwent with mild dka improved in er after IV fluids and insulin will continue NS with medium sliding scale and follow blood sugar obtain A1C and dietary consult Of note patient has lost with diet and exercise over 30 pounds (3) Anxiety Code(s): F41.9 - Anxiety disorder, unspecified Status: Acute Plan: continue current med clonazepam (4) History of ADHD Code(s): Z86.59 - Personal history of other mental and behavioral disorders Status: Acute Plan: continue home meds - Plan further plan as case develops Code Status: full Discussed Condition With: patient
[2018-03-16] MEDS: Amphetamine/Dextroamphetamine 20 MG Tablet PO SCH (21:59)
[2018-03-16] MEDS ORDERED: traZODone 100 MG Tablet PO ONE (22:00)
[2018-03-16] MEDS ORDERED: clonazePAM 1 MG Tablet PO ONE (22:00)
[2018-03-17] MEDS: Insulin NovoLOG Aspart Correctional Sugar Inj SQ SCH ×3 (03:06→18:18)
[2018-03-17] MEDS: Sod Chloride 0.9% Inj 1,000 ML IV.CONT SCH ×6 (03:07→23:56)
[2018-03-17 06:20] LABS: Beta Hydroxybutyric Acid 0.15 mmol/L (0.00-0.39); Calcium 8.5 mg/dL (8.5-10.1); Carbon Dioxide 20.2 meq/L (21.0-32.0); Potassium 3.4 meq/L (3.5-5.1)
[2018-03-17] MEDS ORDERED: Sertraline 100 MG Tablet PO SCH (09:00)
[2018-03-17] MEDS ORDERED: clonazePAM 0.5 MG Tablet PO SCH (09:00)
--- NOTE | 2018-03-17 10:33 | ECG ---
Date Performed: 03/16/2018 Time Performed: 22:30:58 PTAGE: 37 years EKG: Sinus rhythm NONSPECIFIC T-WAVE ABNORMALITY BORDERLINE ECG PREVIOUS TRACING : 07/12/2017 11.15 Since the previous tracing, no significant change noted DOCTOR: Michelle Schmid Interpretating Date/Time 03/17/2018 10:33:26
[2018-03-17] MEDS: Amphetamine/Dextroamphetamine 20 MG Tablet PO SCH (12:36)
[2018-03-17] MEDS ORDERED: Glimepiride 2 MG Tablet PO ONE (14:00)
--- NOTE | 2018-03-17 14:57 | P.DIET ---
Nutritional Evaluation Nutrition screening: [facility] [place]: New onset Diabetes: Diet Education Assessment Assessment: Pt educated on 1800 ADA diet. Reviewed carbohydrate distribution for meals, carb counting, reading labels. Provided written literature. Pt is able to demonstrate meal planning, expect good compliance. Pt has recently lost over 30 lbs intentionally by changing her eating habits and removing the majority of sugar from her diet.
[2018-03-17 15:44] LABS: Hemoglobin A1c 11.5 % (4.3-6.0)
--- NOTE | 2018-03-17 17:08 | P.PNIM ---
Subjective Interval history: Follow up: Mild DKA, probable new onset of type 2 DM Physical Exam Vital signs: Vital Signs 03/16/18 17:07 03/16/18 21:15 03/16/18 21:53 Temperature 98.6 F Pulse Rate 98 H 91 H Respiratory Rate 16 18 Blood Pressure 134/71 127/64 Pulse Oximetry 97 95 98 03/17/18 00:00 03/17/18 04:10 03/17/18 08:00 Temperature 98.2 F 98.6 F 97.4 F L Pulse Rate 97 H 94 H 83 Respiratory Rate 18 18 18 Blood Pressure 111/61 108/55 L 116/61 Pulse Oximetry 95 92 L 95 03/17/18 12:00 Temperature 97.5 F L Pulse Rate 85 Respiratory Rate 18 Blood Pressure 115/62 Pulse Oximetry 96 Intake & Output 03/16/18 03/17/18 03/17/18 18:59 06:59 18:59 Intake Total 1000 / 1000 1480 / 1480 1000 / 1000 Balance 1000 / 1000 1480 / 1480 1000 / 1000 Weight 106.141 kg 106.14 kg Intake: IV 1000 / 1000 1000 / 1000 1000 / 1000 NS Inj 1,000 ML @ 125 mls/hr IV 1000 / 1000 1000 / 1000 .CONT .Q8H [facility] Rx#:[id number] NS Inj 1,000 ML @ Wide Open IV. 1000 / 1000 SIG BOLUS ONE Rx#:[id number] Oral 480 / 480 Other: # Voids 4 Date of Last Bowel Movement 03/16/18 03/17/18 # Bowel Movements 0 Weight On Admission 106.141 kg Narrative: GENERAL: This is a well-nourished, well-developed patient, in no apparent distress. SKIN: multiple tattoos CARDIOVASCULAR: Regular rate and rhythm RESPIRATORY: Clear to auscultation. Breath sounds equal bilaterally. GASTROINTESTINAL: Abdomen soft, non-tender, nondistended. Normal active bowel sounds MUSCULOSKELETAL: Extremities without clubbing, cyanosis, or edema. NEURO: Alert & Oriented x4 to person, place, time, situation. Moves all ext x4 Results - Labs CBC & Chem 7: 03/18/18 05:39 03/18/18 05:39 Laboratory Results - last 24 hr 03/16/18 03/16/18 03/16/18 16:58 16:58 16:58 WBC 10.7 RBC 5.06 Hgb 14.0 Hct 41.6 MCV 82.3 MCH 27.6 MCHC 33.6 RDW 14.3 Plt Count 244 MPV 8.8 Neut % (Auto) 68.3 Lymph % (Auto) 24.3 [place] % (Auto) 4.4 Eos % (Auto) 2.5 Baso % (Auto) 0.5 Neut # (Auto) 7.3 Lymph # (Auto) 2.6 [place] # (Auto) 0.5 Eos # (Auto) 0.3 Baso # (Auto) 0.1 WBC Differential . Differential Comment Auto diff final Sodium 132 L Potassium 4.0 Chloride 101 Carbon Dioxide 21.4 Anion Gap 10 BUN 8 Creatinine 1.01 H Estimated GFR 61 L POC Glucose Random Glucose 525 H* Hemoglobin A1c Calcium 9.0 Total Bilirubin 0.3 AST 54 H ALT 45 Alkaline Phosphatase 156 H Total Protein 8.3 H Albumin 3.7 Lipase 200 Beta-Hydroxybutyric Acd 0.90 H Urine Color Urine Clarity Urine pH Ur Specific [place] Urine Protein Urine Glucose (UA) Urine Ketones Urine Occult Blood Urine Nitrate Urine Bilirubin Urine Urobilinogen Ur Leukocyte Esterase Urine RBC Urine WBC Ur Squamous Epith Cells Urine Bacteria Urine Yeast Micro UA Comment Urine Culture Comments 03/16/18 03/16/18 03/17/18 17:41 20:03 03:02 WBC RBC Hgb Hct MCV MCH MCHC RDW Plt Count MPV Neut % (Auto) Lymph % (Auto) [place] % (Auto) Eos % (Auto) Baso % (Auto) Neut # (Auto) Lymph # (Auto) [place] # (Auto) Eos # (Auto) Baso # (Auto) WBC Differential Differential Comment Sodium Potassium Chloride Carbon Dioxide Anion Gap BUN Creatinine Estimated GFR POC Glucose 282 H 334 H Random Glucose Hemoglobin A1c Calcium Total Bilirubin AST ALT Alkaline Phosphatase Total Protein Albumin Lipase Beta-Hydroxybutyric Acd Urine Color Straw Urine Clarity Hazy H Urine pH 6.0 Ur Specific [place] 1.033 Urine Protein Negative Urine Glucose (UA) 500 or greater Urine Ketones 20 Urine Occult Blood Small H Urine Nitrate Negative Urine Bilirubin Negative Urine Urobilinogen Less than 2 Ur Leukocyte Esterase Negative Urine RBC 1 Urine WBC 2 Ur Squamous Epith Cells 5 Urine Bacteria Occasional H Urine Yeast Occasional H Micro UA Comment Culture not ind Urine Culture Comments Culture not ind 03/17/18 03/17/18 03/17/18 05:29 05:29 06:18 WBC RBC Hgb Hct MCV MCH MCHC RDW Plt Count MPV Neut % (Auto) Lymph % (Auto) [place] % (Auto) Eos % (Auto) Baso % (Auto) Neut # (Auto) Lymph # (Auto) [place] # (Auto) Eos # (Auto) Baso # (Auto) WBC Differential Differential Comment Sodium 141 Potassium 3.4 L Chloride 109 H D Carbon Dioxide 20.2 L Anion Gap 12 BUN 8 Creatinine 0.75 Estimated GFR 86 L POC Glucose 357 H Random Glucose 302 H D Hemoglobin A1c 11.5 H Calcium 8.5 Total Bilirubin AST ALT Alkaline Phosphatase Total Protein Albumin Lipase Beta-Hydroxybutyric Acd 0.15 D Urine Color Urine Clarity Urine pH Ur Specific [place] Urine Protein Urine Glucose (UA) Urine Ketones Urine Occult Blood Urine Nitrate Urine Bilirubin Urine Urobilinogen Ur Leukocyte Esterase Urine RBC Urine WBC Ur Squamous Epith Cells Urine Bacteria Urine Yeast Micro UA Comment Urine Culture Comments 03/17/18 03/17/18 12:31 16:33 WBC RBC Hgb Hct MCV MCH MCHC RDW Plt Count MPV Neut % (Auto) Lymph % (Auto) [place] % (Auto) Eos % (Auto) Baso % (Auto) Neut # (Auto) Lymph # (Auto) [place] # (Auto) Eos # (Auto) Baso # (Auto) WBC Differential Differential Comment Sodium Potassium Chloride Carbon Dioxide Anion Gap BUN Creatinine Estimated GFR POC Glucose 400 H 260 H Random Glucose Hemoglobin A1c Calcium Total Bilirubin AST ALT Alkaline Phosphatase Total Protein Albumin Lipase Beta-Hydroxybutyric Acd Urine Color Urine Clarity Urine pH Ur Specific [place] Urine Protein Urine Glucose (UA) Urine Ketones Urine Occult Blood Urine Nitrate Urine Bilirubin Urine Urobilinogen Ur Leukocyte Esterase Urine RBC Urine WBC Ur Squamous Epith Cells Urine Bacteria Urine Yeast Micro UA Comment Urine Culture Comments - Imaging Impressions Abdomen/Pelvis CT 03/16/18 16:49 CONCLUSION: 1. Small opacity at the left lung base could represent a small infiltrate or atelectasis. 2. 3.1 cm mass in the right adnexa stable from prior CT in 2016, probably related to the right ovary. 3. Hepatomegaly with diffuse fatty change. No focal lesions seen. Assessment and Plan - Assessment (1) DKA (diabetic ketoacidoses) Code(s): E13.10 - Other specified diabetes mellitus with ketoacidosis without coma Status: Acute Plan: DKA (diabetic ketoacidoses) New onset type 2 diabetes mellitus This is a 37-year-old white female presented to the emergency department for evaluation of nausea vomiting abdominal pain which started approximately 4-5 days ago. Patient reports just not feeling well may have had some fevers some chills initially thought she had a urinary tract infection went to an urgent care center they are she had a glucose check which was greater than 500. Patient has also been having increasing thirst increasing frequency with urination. Patient has had urinary incontinence and has a bladder stimulator, patient does state she has been more incontinent over the last several days. On initial evaluation in the emergency room patient was found to have an elevated sugar greater than 500 with a positive beta butyrate (0.90) consistent with mild DKA normal anion gap she was given IV fluids and normal insulin with improvement in her sugar to 282 admitted now for further evaluation with probable new onset diabetes. Patient with mild DKA and has improved with IV fluid and insulin Continue accu checks ACHS with SSI continue IVFs obtain A1C C Peptide Suspect new onset type 2 DM Unable to start metformin patient has had CT abd/pelvis with IV contrast 03/16/18 start glimepiride Consult life skills educator and dietitian Anxiety continue current med clonazepam History of ADHD continue home meds (2) New onset type 2 diabetes mellitus Code(s): E11.9 - Type 2 diabetes mellitus without complications Status: Acute (3) Anxiety Code(s): F41.9 - Anxiety disorder, unspecified Status: Acute (4) History of ADHD Code(s): Z86.59 - Personal history of other mental and behavioral disorders Status: Acute - Plan Patient examined. Assessment and plan formulated with Ilsa Michele PA-C. I agree with the above. - start amaryl 4mg Daily - will likely start metformin 03/18/18 - would like trial of OHA before committing pt to insulin therapy - anticipate d/c to home 03/19/18
[2018-03-17] MEDS ORDERED: clonazePAM 1 MG Tablet PO SCH (18:00)
[2018-03-17] MEDS ORDERED: traZODone 100 MG Tablet PO SCH (18:00)
[2018-03-17] MEDS ORDERED: Glimepiride 4 MG Tablet PO ONE (20:00)
[2018-03-17] MEDS: Sertraline 100 MG Tablet PO SCH (21:45)
[2018-03-17] MEDS: clonazePAM 1 MG Tablet PO SCH (21:50)
[2018-03-17] MEDS: traZODone 100 MG Tablet PO SCH (21:54)
[2018-03-18] MEDS: Insulin NovoLOG Aspart Correctional Sugar Inj SQ SCH ×4 (00:12→17:47)
[2018-03-18] MEDS: Sod Chloride 0.9% Inj 1,000 ML IV.CONT SCH ×2 (06:14→08:44)
[2018-03-18 06:30] LABS: Baso % (Auto) 0.4 % (0.0-2.0); Eos # (Auto) 0.3 th/mm3 (0.0-0.4); Eos % (Auto) 3.7 % (0.0-4.0); Hematocrit 36.2 % (35.0-46.0); Hemoglobin 12.3 gm/dL (11.6-15.3); Lymph # (Auto) 3.9 th/mm3 (1.0-4.8); Lymph % (Auto) 42.7 % (9.0-44.0); Mean Corpuscular HGB Conc 34.1 % (32.0-36.0); Mean Corpuscular Hemoglobin 27.9 pg (27.0-34.0); Mean Corpuscular Volume 81.7 fL (80.0-100.0); Mean Platelet Volume 8.6 fL (7.0-11.0); Mono # (Auto) 0.4 th/mm3 (0.0-0.9); Mono % (Auto) 4.8 % (0.0-8.0); Neut # (Auto) 4.4 th/mm3 (1.8-7.7); Neut % (Auto) 48.4 % (16.0-70.0); Platelet Count 221 th/mm3 (150-450); Red Blood Count 4.43 mil/mm3 (4.00-5.30); Red Cell Distribution Width 14.2 % (11.6-17.2); White Blood Count 9.1 th/mm3 (4.0-11.0)
[2018-03-18] MEDS ORDERED: Glimepiride 2 MG Tablet PO SCH (07:00)
[2018-03-18 07:03] LABS: Anion Gap 12 meq/L (5-15); Blood Urea Nitrogen 6 mg/dL (7-18); Calcium 8.6 mg/dL (8.5-10.1); Carbon Dioxide 19.4 meq/L (21.0-32.0); Chloride 111 meq/L (98-107); Glomerular Filtration Rate Greater Than 89 mL/min (>89); Glucose,Random 166 mg/dL (74-106); Potassium 3.3 meq/L (3.5-5.1); Sodium 142 meq/L (136-145)
[2018-03-18] MEDS: Glimepiride 4 MG Tablet PO SCH ×2 (08:49→17:47)
[2018-03-18] MEDS: Sertraline 100 MG Tablet PO SCH (08:50)
[2018-03-18] MEDS: clonazePAM 1 MG Tablet PO SCH ×2 (08:50→17:47)
[2018-03-18] MEDS: Amphetamine/Dextroamphetamine 20 MG Tablet PO SCH ×2 (08:50→17:48)
[2018-03-18] MEDS ORDERED: Amphetamine/Dextroamphetamine 20 MG Tablet PO SCH (09:00)
--- NOTE | 2018-03-18 11:54 | P.PNIM ---
Subjective Interval history: No new complaints. Physical Exam Vital signs: Vital Signs 03/17/18 22:51 03/17/18 23:34 03/18/18 08:00 Temperature 97.5 F L 97.7 F Pulse Rate 82 77 Respiratory Rate 18 18 16 Blood Pressure 118/57 L 112/59 L Pulse Oximetry 97 96 Narrative: GENERAL: This is a well-nourished, well-developed patient, in no apparent distress. SKIN: multiple tattoos CARDIOVASCULAR: Regular rate and rhythm RESPIRATORY: Clear to auscultation. Breath sounds equal bilaterally. GASTROINTESTINAL: Abdomen soft, non-tender, nondistended. Normal active bowel sounds MUSCULOSKELETAL: Extremities without clubbing, cyanosis, or edema. NEURO: Alert & Oriented x4 to person, place, time, situation. Moves all ext x4 Results - Labs CBC & Chem 7: 03/18/18 05:39 03/18/18 05:39 - Imaging Abdomen/Pelvis CT 03/16/18 16:49 CONCLUSION: 1. Small opacity at the left lung base could represent a small infiltrate or atelectasis. 2. 3.1 cm mass in the right adnexa stable from prior CT in 2016, probably related to the right ovary. 3. Hepatomegaly with diffuse fatty change. No focal lesions seen. Assessment and Plan - Assessment (1) DKA (diabetic ketoacidoses) Code(s): E13.10 - Other specified diabetes mellitus with ketoacidosis without coma Status: Acute Plan: DKA (diabetic ketoacidoses) New onset type 2 diabetes mellitus This is a 37-year-old white female presented to the emergency department for evaluation of nausea vomiting abdominal pain which started approximately 4-5 days ago. Patient reports just not feeling well may have had some fevers some chills initially thought she had a urinary tract infection went to an urgent care center they are she had a glucose check which was greater than 500. Patient has also been having increasing thirst increasing frequency with urination. Patient has had urinary incontinence and has a bladder stimulator, patient does state she has been more incontinent over the last several days. On initial evaluation in the emergency room patient was found to have an elevated sugar greater than 500 with a positive beta butyrate (0.90) consistent with mild DKA normal anion gap she was given IV fluids and normal insulin with improvement in her sugar to 282 admitted now for further evaluation with probable new onset diabetes. - Pt admitted with mild DKA - Pt improved with IVF, supplemental insulin - trial of OHA prior to committing pt to daily insulin - HgA1C (03/17) 11.5 - C-peptide, insulin level --> pending - amaryl 4mg PO BID - start Glucophage 500mg BID - appreciate input from wellness educator - Pt will need to f/u with PCP, Dr. Alvarez, one week after discharge - SCDs for DVT prophylaxis - anticipate d/c to home 03/19/18 Anxiety continue current med clonazepam History of ADHD continue home meds (2) New onset type 2 diabetes mellitus Code(s): E11.9 - Type 2 diabetes mellitus without complications Status: Acute (3) Anxiety Code(s): F41.9 - Anxiety disorder, unspecified Status: Acute (4) History of ADHD Code(s): Z86.59 - Personal history of other mental and behavioral disorders Status: Acute - Plan Patient examined. Assessment and plan formulated with Ilsa Michele PA-C. I agree with the above. - start amaryl 4mg Daily - will likely start metformin 03/18/18 - would like trial of OHA before committing pt to insulin therapy - anticipate d/c to home 03/19/18
[2018-03-18] MEDS: traZODone 100 MG Tablet PO SCH (20:40)
[2018-03-19] MEDS: Insulin NovoLOG Aspart Correctional Sugar Inj SQ SCH ×2 (00:09→12:52)
[2018-03-19] MEDS: Sertraline 100 MG Tablet PO SCH (08:40)
[2018-03-19 08:49] LABS: Calcium 8.8 mg/dL (8.5-10.1); Carbon Dioxide 20.4 meq/L (21.0-32.0); Magnesium 1.8 mg/dL (1.5-2.5); Potassium 3.4 meq/L (3.5-5.1)
[2018-03-19] MEDS: Glimepiride 4 MG Tablet PO SCH (08:59)
[2018-03-19] MEDS: clonazePAM 1 MG Tablet PO SCH (09:00)
[2018-03-19 09:39] VITALS: O2SAT 96
[2018-03-19] MEDS: Amphetamine/Dextroamphetamine 20 MG Tablet PO SCH (12:53)
--- NOTE | 2018-03-19 13:29 | P.DS ---
Date of admission: 03/16/18 19:43 Primary care physician: Ruslan Alvarez MD Brief History from admission: 37-year-old white female presented to the emergency department for evaluation of nausea vomiting abdominal pain which started approximately 4-5 days ago. Patient reports just not feeling well may have had some fevers some chills initially thought she had a urinary tract infection went to an urgent care center they are she had a glucose check which was greater than 500. Patient was referred to [place] emergency room. Patient has been having increasing thirst increasing frequency with urination. Patient has had urinary incontinence and has a bladder stimulator, patient does state she has been more incontinent over the last several days. She reports that she has some suprapubic and epigastric abdominal pain does not radiate and is about a 4/10 currently, cramping in nature. On initial evaluation in the emergency room patient was found to have an elevated sugar greater than 500 with a positive beta butyrate consistent with mild DKA normal anion gap she was given IV fluids and normal insulin with improvement in her sugar to 282 spleen admitted now for further evaluation with probable new onset diabetes. DS: Diagnosis - Discharge Diagnosis (1) DKA (diabetic ketoacidoses) Status: Acute (2) New onset type 2 diabetes mellitus Status: Acute (3) Anxiety Status: Acute (4) History of ADHD Status: Acute DS: Summary Hospital Course: (1) DKA (diabetic ketoacidoses) Code(s): E13.10 - Other specified diabetes mellitus with ketoacidosis without coma Status: Acute Plan: DKA (diabetic ketoacidoses) New onset type 2 diabetes mellitus This is a 37-year-old white female presented to the emergency department for evaluation of nausea vomiting abdominal pain which started approximately 4-5 days ago. Patient reports just not feeling well may have had some fevers some chills initially thought she had a urinary tract infection went to an urgent care center they are she had a glucose check which was greater than 500. Patient has also been having increasing thirst increasing frequency with urination. Patient has had urinary incontinence and has a bladder stimulator, patient does state she has been more incontinent over the last several days. On initial evaluation in the emergency room patient was found to have an elevated sugar greater than 500 with a positive beta butyrate (0.90) consistent with mild DKA normal anion gap she was given IV fluids and normal insulin with improvement in her sugar to 282 admitted now for further evaluation with probable new onset diabetes. - Pt admitted with mild DKA - Pt improved with IVF, supplemental insulin - trial of OHA prior to committing pt to daily insulin - HgA1C (03/17) 11.5 - C-peptide 2.13 - insulin level --> pending - amaryl 4mg PO BID - Glucophage 500mg BID, increase to 1,000mg BID if blood sugars sustain above 200 after discharge - appreciate input from finisher wallboard and plasterboard - Pt will need to f/u with PCP, Dr. Alvarez, one week after discharge - Pt instructed to observe ADA diet - Pt instructed to keep home blood sugar log. - discharge to home - see discharge orders. Anxiety continue current med clonazepam History of ADHD continue home meds - Time Spent with Patient Total time spent providing and/or coordinating discharge services: Greater than 30 minutes - Quality: VTE Deep Vein Thrombosis/Pulmonary Embolism Present on Admission: No Exam Vital signs: Vital Signs 03/18/18 16:00 03/18/18 20:00 03/19/18 08:00 Temperature 98.6 F 98.3 F 98.1 F Pulse Rate 69 69 87 Respiratory Rate 18 18 19 Blood Pressure 143/88 H 133/79 113/65 Pulse Oximetry 96 94 L 96 Narrative: GENERAL: This is a well-nourished, well-developed patient, in no apparent distress. CARDIOVASCULAR: Regular rate and rhythm without murmurs, gallops, or rubs. RESPIRATORY: Clear to auscultation. Breath sounds equal bilaterally. No wheezes , rales, or rhonchi. GASTROINTESTINAL: Abdomen soft, non-tender, nondistended. Normal active bowel sounds MUSCULOSKELETAL: Extremities without clubbing, cyanosis, or edema. NEURO: Alert & Oriented x4 to person, place, time, situation. Moves all ext x4 Results Procedures completed during hospitalization: n/a Labs on day of discharge: Labs from last 24 hours 03/19/18 03/19/18 03/19/18 12:48 07:00 06:22 Sodium 142 Potassium 3.4 L Chloride 111 H Carbon Dioxide 20.4 L Anion Gap 11 BUN 5 L Creatinine 0.75 Estimated GFR 86 L POC Glucose 180 H 168 H Random Glucose 162 H C-Peptide Calcium 8.8 Magnesium 1.8 - Impressions ITS Impressions Abdomen/Pelvis CT 03/16/18 16:49 CONCLUSION: 1. Small opacity at the left lung base could represent a small infiltrate or atelectasis. 2. 3.1 cm mass in the right adnexa stable from prior CT in 2016, probably related to the right ovary. 3. Hepatomegaly with diffuse fatty change. No focal lesions seen. Discharge Plan - Discharge Disposition Patient Disposition: 01 Discharge Home - Discharge Condition Condition: Stable - Discharge Order Discharge Orders: Discharge Order (Routine); Ordered 03/19/18 Ordered By: Ronald Serrano - Physicians Team Primary Care Provider: Ruslan Alvarez V Attending Provider: Ronald Serrano
[2018-03-19 14:32] VITALS: BP 135/87; PULSE 96; RESP 21; TEMP 98.4
== END 2018-03-19 15:33 | disposition home or self-care (01) ==
LOC: NEPC 16:14 → NEDA 19:43 → N06 21:30
PROVIDERS: ADMIT Hospitalist; ATTEND Hospitalist
DX: F90.9 Attention-deficit hyperactivity disorder, unspecified type; Z79.899 Other long term (current) drug therapy; E11.10 Type 2 diabetes mellitus with ketoacidosis without coma; G47.00 Insomnia, unspecified; Z79.4 Long term (current) use of insulin; Z85.41 Personal history of malignant neoplasm of cervix uteri; F41.9 Anxiety disorder, unspecified; F17.210 Nicotine dependence, cigarettes, uncomplicated